=== PATIENT | male | born 1950 | race Caucasian/White ===

== ENCOUNTER 2018-07-04 08:13 | Outpatient (CLI) | payer BC, SELFPAY ==
[2018-07-04 10:20] LABS: Anion Gap 7.8 mmol/L (3-11); BUN 14 mg/dL (7-18); CO2 29.2 mmol/L (21.0-32.0); CREATININE 0.96 mg/dL (0.70-1.30); Calcium 9.5 mg/dL (8.5-10.1); Chloride 103 mmol/L (98-107); Cholesterol 191 mg/dL (50-200); Glucose 85 mg/dL (70-100); HDL Cholesterol 70 mg/dL (40-60); LDL CHOLESTEROL 110 mg/dL (<100); Potassium 4.4 mmol/L (3.5-5.1); Sodium 140 mmol/L (136-145); Triglyceride 50 mg/dL (30-150)
[2018-07-07 10:38] LABS: Testosterone, Total 1380 ng/dL (240-950)
== END 2018-07-04 08:33 ==
PROVIDERS: PCP Family Medicine; Visit Provider Family Medicine
DX: Z00.00 Encounter for general adult medical examination without abnormal findings (principal); Z13.220 Encounter for screening for lipoid disorders; E29.1 Testicular hypofunction; Z13.228 Encounter for screening for other metabolic disorders
CPT/HCPCS: 36415; 80048; 80061; 83721; 84403

== ENCOUNTER 2018-07-15 10:06 | Outpatient (CLI) | payer BC, MEDICARE, SELFPAY ==
[2018-07-18 10:52] LABS: Testosterone, Total 235 ng/dL (240-950)
== END 2018-07-15 10:26 ==
PROVIDERS: PCP Family Medicine; Visit Provider Family Medicine
DX: E29.1 Testicular hypofunction (principal)
CPT/HCPCS: 36415; 84403

== ENCOUNTER 2019-02-15 13:32 | Outpatient (CLI) | payer MEDICARE, BC, SELFPAY ==
[2019-02-15 15:50] LABS: HCT 45.8 % (40.0-50.0); HGB 15.5 g/dL (13.5-17.5); Mean Corp. HGB Concentration 33.8 g/dL (32.0-36.0); Mean Corpuscular Volume 97.7 fL (80-95); Mean Platelet Volume 10.2 fL (8.0-11.0); Platelet Count 271 x1000/uL (130-400); RBC 4.69 m/cumm (4.50-6.00); RBC Distribution Width 13.3 % (11.8-14.1); White Blood Cell Count 5.57 k/cumm (4.4-10.8)
[2019-02-15 16:48] LABS: ALT 21 U/L (16-63); AST 23 U/L (15-37); Albumin 3.6 g/dL (3.4-5.0); Alkaline Phosphatase 87 U/L (46-116); Anion Gap 11.8 mmol/L (3-11); BUN 15 mg/dL (7-18); Bilirubin, Total 0.4 mg/dL (0.2-1.0); CO2 24.2 mmol/L (21.0-32.0); CREATININE 1.01 mg/dL (0.70-1.30); Chloride 104 mmol/L (98-107); Glucose 103 mg/dL (70-100); Potassium 4.5 mmol/L (3.5-5.1); Sodium 140 mmol/L (136-145); Total Protein 6.7 g/dL (6.4-8.2)
== END 2019-02-15 13:52 ==
PROVIDERS: PCP Family Medicine; Visit Provider Family Medicine
DX: R53.83 Other fatigue (principal); F32.9 Major depressive disorder, single episode, unspecified
CPT/HCPCS: 36415; 80053; 85027

== ENCOUNTER 2019-04-15 00:08 | Outpatient (CLI) | payer MEDICARE, BC, SELFPAY ==
--- NOTE | 2019-04-15 09:31 | DI.MRI_ITS ---
EXAM: MR LUMBAR SPINE WO CLINICAL HISTORY: RIGHT LUMBAR RADICULOPATHY NOT RESPONDING TO PT, M54.16., BILAT LEG PAIN, LIFTING INJURY TECHNIQUE: Multiplanar multisequence MRI was performed. COMPARISON: No exams were available for comparison FINDINGS: The t 11-12 disc appears normal. At T12-L 1, there is mild disc bulging. At L1-2, there is severe loss of disc height, greater at the right. There is severe bilateral neural foraminal narrowing. There is no significant central canal stenosis. At L2-3 there is broad-based disc bulging and endplate osteophytes. There is a large disc herniation which is left paracentral which shows extrusion of disc material superior to the L2 vertebral body. This causes moderate to severe central canal stenosis. There are facet degenerative changes and lig amentous hypertrophy. There is severe left and mild right neural foraminal narrowing. At L3-4, there are broad-based disc osteophytes and moderate loss of disc height. There are facet de generative changes and ligamentous hypertrophy combining to cause a moderate degree of central canal stenosis. There is moderate to severe bilateral neural foraminal narrowing. At L4-5, there are broad-based disc osteophytes, marked loss of normal disc height and degenerative s ignal changes in the endplates. There is a superimposed central disc protrusion. There are facet de generative changes and ligamentous hypertrophy combining with the disc bulging and disc protrusion to produce a severe degree of central canal stenosis as well as severe left and moderate right neural f oraminal narrowing. At L5-S1, there is marked loss of disc height, endplate osteophytes projecting circumferentially as w ell as degenerative signal changes in the endplates. There are facet degenerative changes as well as ligamentous hypertrophy combining to produce moderate central canal stenosis as well as severe bilat eral neural foraminal narrowing. There is marrow edema seen in the inferior endplate at L 2 which appears mildly compressed. This is suspicious for an acute or sub acute compression fracture. The conus medullaris appears intact. A c yst is seen at the superior pole of the left kidney. There is an apparent area of scarring in the mi d left kidney. IMPRESSION: 1. Acute or subacute mild compression fracture of the inferior endplate of L 2. 2. Left paracentral disc herniation with superior extrusion of disc material at the L2-3 level. 3. Multilevel degenerative disc changes, facet degenerative changes and ligamentous hypertrophy comb ining to produce central canal stenosis as well as bilateral neural foraminal narrowing.
== END 2019-04-15 00:28 ==
PROVIDERS: PCP Family Medicine; Visit Provider Family Medicine
DX: M54.16 Radiculopathy, lumbar region (principal); M48.56XA Collapsed vertebra, not elsewhere classified, lumbar region, initial encounter for fracture; M51.16 Intervertebral disc disorders with radiculopathy, lumbar region; M51.17 Intervertebral disc disorders with radiculopathy, lumbosacral region; M79.604 Pain in right leg; M79.605 Pain in left leg
CPT/HCPCS: 72148

== ENCOUNTER 2019-05-09 15:57 | Outpatient (CLI) | payer MEDICARE, BC, SELFPAY ==
--- NOTE | 2019-05-09 12:00 | DI.RAD_ITS ---
EXAM: XR LUMBAR SPINE COMPLETE CLINICAL HISTORY: Compression fracture L2 S32.020A COMPARISON: MR LUMBAR SPINE WO from 04/15/2019 FINDINGS: There is narrowing of the intervertebral disc spaces at the L1-2, L4-5 and L5-S1 levels with prominen t sclerotic endplate changes and hypertrophic changes at these levels. Hypertrophic changes also pre sent to a lesser degree at the remaining lumbar levels. There are moderate changes of facet hypertro phy. No definite spondylolysis or spondylolisthesis. No acute compression fracture. Inferior endpl ate compression noted at L2, no change from prior MR examination of April 15. IMPRESSION: Multilevel degenerative changes and disc degeneration as described above. No gross interval change in contour of L2 vertebral body since 04/15/2019.
== END 2019-05-09 16:17 ==
PROVIDERS: PCP Family Medicine; Visit Provider Family Medicine
DX: M51.37 Other intervertebral disc degeneration, lumbosacral region (principal); M47.817 Spondylosis without myelopathy or radiculopathy, lumbosacral region; S32.020D Wedge compression fracture of second lumbar vertebra, subsequent encounter for fracture with routine healing
CPT/HCPCS: 72110

== ENCOUNTER 2019-08-23 01:47 | Outpatient (CLI) | payer MEDICARE, BC, SELFPAY ==
--- NOTE | 2019-08-23 06:30 | DI.MRI_ITS ---
EXAM: MR LUMBAR SPINE WO CLINICAL HISTORY: Worsening pain from lumbar radiculopathy,SPINAL STENOSIS,M54.16,M48.061.BILAT LEG PAIN, SACRAL PAIN TECHNIQUE: Multiplanar multisequence MRI was performed. COMPARISON: MR LUMBAR SPINE WO from 04/15/2019 FINDINGS: The conus medullaris has a normal location. At L5-S1, there is disc desiccation. There is a diffuse disc bulge present. There are hypertrophic changes of the facets and ligamentum flavum. No significant central spinal canal stenosis is present . Moderately severe right and moderate left neural foraminal stenosis is present. At L4-5, there is a large central disc herniation which appears unchanged. There are hypertrophic ch anges of the facets and ligamentum flavum. These all contribute to cause moderately severe central s crystal canal stenosis. No significant right neural foraminal stenosis is present. There is mild-to-m oderate left neural foraminal stenosis. At L3-L4, there is disc desiccation and there is a mild diffuse disc bulge. No focal disc herniation is seen. There are hypertrophic changes of the ligamentum flavum asymmetrically on the right. No si gnificant central spinal canal stenosis is seen. There is mild bilateral neural foraminal stenosis, right greater than left. At L2-L3, there is again seen a large central disc herniation with extrusion posterior to the L2 vert ebral body. There are hypertrophic changes of the facets. These all contribute to cause moderate ce ntral spinal canal stenosis. No significant right neural foraminal stenosis is seen. Moderately sev ere left neural foraminal stenosis is present. Endplate degenerative signal changes are present. At L1-L2, there is degenerative disc disease. No focal disc herniation or central spinal canal steno sis is present. Mild narrowing of the neural foramen is present. There has been no change in appearance of the L2 compression deformity. Linear low signal seen in th e L1 and L4 vertebral body appears stable. No new compression fracture deformities are appreciated. IMPRESSION: Overall stable appearance of the MRI of the lumbar spine. Multilevel spinal canal and neural foramin al stenosis is seen. Multilevel disc herniations are present. Please see the above discussion for c omplete details. DATA REPOSITORY:
== END 2019-08-23 02:07 ==
PROVIDERS: PCP Family Medicine; Visit Provider Family Medicine
DX: M48.061 Spinal stenosis, lumbar region without neurogenic claudication (principal); M54.16 Radiculopathy, lumbar region; M79.604 Pain in right leg; M79.605 Pain in left leg; M51.17 Intervertebral disc disorders with radiculopathy, lumbosacral region
CPT/HCPCS: 72148

== ENCOUNTER 2019-09-13 18:59 | Outpatient (REF) | payer MEDICARE, BC, SELFPAY ==
[2019-09-13 19:22] LABS: Abs Immature Grans 0.01 k/cumm (0.0-0.09); Absolute Basophil Count 0.05 k/cumm (0.0-0.2); Absolute Lymphocyte Count 2.25 k/cumm (1.2-3.4); Absolute Monocyte Count 0.77 k/cumm (0.11-0.7); Absolute Neutrophil Count 2.68 k/cumm (1.2-6.7); Basophils % 0.8; Eosinophils % 6.5; HCT 48.2 % (40.0-50.0); HGB 16.3 g/dL (13.5-17.5); Immature Grans % 0.2 %; Lymphocytes % 36.5; Mean Corp. HGB Concentration 33.8 g/dL (32.0-36.0); Mean Corpuscular Hemoglobin 34.2 pg (27.0-33.0); Mean Platelet Volume 10.9 fL (8.0-11.0); Monocytes % 12.5; Neutrophils % 43.5; Platelet Count 259 x1000/uL (130-400); RBC 4.77 m/cumm (4.50-6.00); RBC Distribution Width 13.2 % (11.8-14.1); White Blood Cell Count 6.16 k/cumm (4.4-10.8)
[2019-09-13 19:31] LABS: ALT 25 U/L (16-63); AST 23 U/L (15-37); Albumin 4.1 g/dL (3.4-5.0); Alkaline Phosphatase 66 U/L (46-116); Anion Gap 6.9 mmol/L (3-11); BUN 16 mg/dL (7-18); Bilirubin, Total 0.6 mg/dL (0.2-1.0); CO2 31.1 mmol/L (21.0-32.0); Calcium 9.8 mg/dL (8.5-10.1); Chloride 101 mmol/L (98-107); Glucose 100 mg/dL (74-106); Potassium 4.2 mmol/L (3.5-5.1); Sodium 139 mmol/L (136-145); Total Protein 7.1 g/dL (6.4-8.2)
== END 2019-09-13 19:19 ==
LOC: LBN 18:59
PROVIDERS: PCP Family Medicine; Visit Provider Nurse Practitioner Family
DX: M54.16 Radiculopathy, lumbar region (principal); M48.061 Spinal stenosis, lumbar region without neurogenic claudication; Z01.818 Encounter for other preprocedural examination; Z01.812 Encounter for preprocedural laboratory examination
CPT/HCPCS: 80053; 85025

== ENCOUNTER 2019-11-05 07:59 | Outpatient (CLI) | payer MEDICARE, BC, SELFPAY ==
[2019-11-08 02:35] LABS: SARS-CoV-2 RNA Undetected (Undetected); SARS-CoV-2 Specimen Source Nasopharynx
== END 2019-11-05 08:19 ==
PROVIDERS: PCP Family Medicine; Visit Provider Family Medicine
DX: Z03.818 Encounter for observation for suspected exposure to other biological agents ruled out (principal)
CPT/HCPCS: U0003

== ENCOUNTER 2020-03-16 08:10 | Outpatient (CLI) | payer MEDICARE, BC, SELFPAY ==
[2020-03-19 02:20] LABS: Patient Race White; SARS-CoV-2 RNA Undetected (Undetected); SARS-CoV-2 Specimen Source Nasal
== END 2020-03-16 08:30 ==
PROVIDERS: PCP Nurse Practitioner Family; Visit Provider Nurse Practitioner Family
DX: Z11.59 Encounter for screening for other viral diseases (principal)
CPT/HCPCS: U0003

== ENCOUNTER 2020-03-23 02:46 | Outpatient (CLI) | payer MEDICARE, BC, SELFPAY ==
[2020-03-27 15:20] LABS: Testosterone, Free 11.1 ng/dL (3.47-13.0); Testosterone, Total 309 ng/dL (240-950)
== END 2020-03-23 03:06 ==
PROVIDERS: PCP Nurse Practitioner Family; Visit Provider Nurse Practitioner Family
DX: E29.1 Testicular hypofunction (principal)
CPT/HCPCS: 36415; 84402; 84403

== ENCOUNTER 2020-07-14 03:32 | Outpatient (CLI) | payer MEDICARE, BC, SELFPAY ==
[2020-07-14 15:43] LABS: HCT 45.4 % (40.0-50.0); HGB 15.4 g/dL (13.5-17.5); MCHC 33.9 % (32.0-36.0); MCV 100.2 fL (80-95); MPV 9.3 fL (8.0-11.0); Platelet Count 346 10^3/uL (130-400); RBC 4.53 10^6/uL (4.36-5.78); RDW 12.5 % (11.8-14.1); RDW-SD 46.6 fL; WBC 5.72 10^3/uL (4.4-10.8)
[2020-07-14 16:55] LABS: Hemoglobin A1C 5.6 % (<5.7)
[2020-07-14 17:20] LABS: Calculated LDL 83 mg/dL (<100); Cholesterol 196 mg/dL (<200); Ferritin 73 ng/mL (26-388); HDL Cholesterol 49 mg/dL (40-60); TSH 6.86 uIU/mL (0.36-3.74); Triglyceride 320 mg/dL (<150); Vitamin B12 494 pg/mL (193-986)
[2020-07-14 17:46] LABS: Folate > 20.0 ng/mL (8.6-20.0)
[2020-07-14 18:01] LABS: FREE T4 0.72 ng/dL (0.76-1.46)
[2020-07-16 04:49] LABS: Vitamin D 25 Total 37.3 ng/ml (30-100)
[2020-07-17 18:15] LABS: Thyroglobulin Antibody <15 U/mL (<=60); Thyroperoxidase Antibody <28 U/mL (<=60)
== END 2020-07-14 03:33 | disposition home or self-care (01) ==
LOC: LBO 03:32
PROVIDERS: PCP Nurse Practitioner Family; Visit Provider Nurse Practitioner Family
DX: R53.83 Other fatigue (principal); E78.5 Hyperlipidemia, unspecified; R73.01 Impaired fasting glucose; D75.89 Other specified diseases of blood and blood-forming organs; M85.88 Other specified disorders of bone density and structure, other site
CPT/HCPCS: 36415; 80061; 82306; 85027; 86376; 82607; 82728; 82746; 83036; 84439; 84443

== ENCOUNTER 2020-08-11 02:11 | Outpatient (CLI) | payer MEDICARE, BC, SELFPAY ==
--- NOTE | 2020-08-11 09:00 | DI.DEXA_ITS ---
EXAM: XR DEXA BONE DENSITY W/WO GABBY CLINICAL HISTORY: Recurrent fractures, assess for osteoporosis,OSTEOPENIA RT HIP, M85.851 TECHNIQUE: Ditto C densitometer. Evaluation of the lumbar spine, right forearm and left h ip. COMPARISON: CR CHEST 2 VIEWS PA,LAT from 04/12/2010 CR CHEST 2 VIEWS PA,LAT from 04/12/2010 CR XR LUMBAR SPINE COMPLETE from 05/09/2019 MR MR LUMBAR SPINE WO from 08/23/2019 FINDINGS: The lateral diesel inspector view of the thoracic and lumbar spine shows no visible compression fractures. Dege nerative disc changes are noted in the lumbar region. The bone mineral density measurements of the lumbar spine correspond to total T-score of 0.6, in the normal range. The bone mineral density measurements of the lumbar spine may be falsely elevated due to sclerotic degenerative disc changes which are visible at L2-3 and L3-4.. The least dense vertebra l body is L1 with a T-score of -3.8, in the osteoporotic range. Bone mineral density measurements of the left hip correspond to a total T-score of -2.0 and a femoral neck T-score of -2.4, in the osteopenic range. The right forearm bone mineral density measurements correspond to a T-score of the distal 3rd of -2.6 , in the osteoporotic range. The IMPRESSION: Overall normal bone mineral density of the lumbar spine may be falsely elevated DJD degenerative disc changes. The L1 vertebral body shows osteoporosis. Osteoporosis of is also demonstrated in the rig ht forearm. Osteopenia is present in the left hip.
== END 2020-08-11 02:31 ==
PROVIDERS: PCP Nurse Practitioner Family; Visit Provider Nurse Practitioner Family
DX: M81.0 Age-related osteoporosis without current pathological fracture (principal); M85.88 Other specified disorders of bone density and structure, other site; M85.851 Other specified disorders of bone density and structure, right thigh
CPT/HCPCS: 77080

== ENCOUNTER 2020-08-19 02:42 | Outpatient (RCR) | payer MEDICARE, BC, SELFPAY ==
[2020-08-19] MEDS: Normal Saline Flush 10 ML SYR IVP (13:07)
== END 2020-09-04 23:59 | disposition home or self-care (01) ==
LOC: INF 02:42
PROVIDERS: PCP Nurse Practitioner Family; Visit Provider Nurse Practitioner Family
DX: M81.8 Other osteoporosis without current pathological fracture (principal)
CPT/HCPCS: 96365; J3489

== ENCOUNTER 2020-08-21 02:12 | Outpatient (CLI) | payer MEDICARE, BC, SELFPAY ==
[2020-08-21 09:22] LABS: Calculated LDL 97 mg/dL (<100); Cholesterol 170 mg/dL (<200); HDL Cholesterol 54 mg/dL (40-60); Triglyceride 99 mg/dL (<150)
[2020-08-21 09:44] LABS: FREE T4 0.68 ng/dL (0.76-1.46); TSH 2.98 uIU/mL (0.36-3.74)
[2020-08-25 15:15] LABS: Testosterone, Free 43.5 ng/dL (3.28-12.2); Testosterone, Total 1060 ng/dL (240-950)
== END 2020-08-21 02:13 | disposition home or self-care (01) ==
LOC: LBO 02:12
PROVIDERS: PCP Nurse Practitioner Family; Visit Provider Nurse Practitioner Family
DX: E78.1 Pure hyperglyceridemia (principal); E29.1 Testicular hypofunction; R79.89 Other specified abnormal findings of blood chemistry
CPT/HCPCS: 36415; 80061; 84402; 84403; 84439; 84443

== ENCOUNTER 2020-08-27 16:25 | Outpatient (CLI) | payer MEDICARE, BC, SELFPAY ==
--- NOTE | 2020-08-27 08:00 | DI.US_ITS ---
EXAM: US THYROID CLINICAL HISTORY: assess for thyroid atrophy, nodules,ELEVATED TSH,R79.89. TECHNIQUE: Ultrasound thyroid performed using standard protocol. COMPARISON: No exams were available for comparison FINDINGS: RIGHT THYROID LOBE: Measures 1.0 cm AP x 1.1 cm wide x 3.2 cm craniocaudal There are no nodules in the right lobe. Slightly prominent vein is noted medial to the jugular vein. TiRads: 0 ISTHMUS: Normal thickness. There are no nodules in the isthmus. LEFT THYROID LOBE: Measures 1.1 cm AP x 1.0 wide x 3.1 cm craniocaudal There are no nodules evident in the left lobe TiRads: 0 LYMPH NODES: Small benign-appearing lymph nodes seen bilaterally.. No significant adenopathy. IMPRESSION: 1. No significant findings on this ultrasound examination of the thyroid gland. There are no nodules in either thyroid lobe. Both lobes exhibit normal size, as does the isthmus. 2. There is no significant lymphadenopathy. DATA REPOSITORY:
--- OUTSIDE RECORDS SUMMARY | 2020-08-28 16:29 | XMS_ITS | Encounter Summary ---
:1950 Author Care Team Providers Name Role Phone Kylie Hughes MARKETING RESEARCH ANALYST Primary Care Provider [phone] Reason for Visit post op s/p ORIF w/cannulated screws R hip subca pital fx, DOS 07/01/20 Assessment and Plan Assessment Note Patient is doing well. I advised hi m not to be too active given that healing is still going to take several months. I should see him in a month with some repeat films of the right hip. Total time 15 minutes 1. Fracture of proximal end of f emur ? XR, hip + pelvis, unilater al, 1 view Discussion Note: None recorded.Patient educational handouts: No information available. Plan of Care Reminders Provider Appointments Follow up Amita Herring, 15 09/23/2020 10:15AM Lab None ? ? recorded. Referral None ? ? recorded. Procedures None ? ? recorded. Surgeries None ? ? recorded. Imaging XR, Hip + [place] Pelvis, Unilateral, 1 08/26/2020 Hospital R adiology View (Internal) Medications Name Start Date ? ? Acetaminophen Extra Strength 500 mg tablet 07/02/2020 Take 2 tablets every 6 hours by oral route as needed. albuterol sulfate HFA 90 mcg/actuation aerosol inhaler 07/02/2020 Inhale 2 puffs every 4 hours by inhalation route. Cymbalta 60 mg capsule,delayed release 07/02/2020 Take 2 capsules every day by oral route. enoxaparin 40 mg/0.4 mL subcutaneous syringe Inject 40 mg every 24 hours by subcutaneous route for 21 days. testosterone cypionate 200 mg/mL intramuscular oil Inject 200 mg every 2 weeks by intramuscular route. Notes: Med Rec Updated 07/01/2020 -laf zinc, magnesium, NAC- all OTC. Medications Administered None recorded. Vitals Height Weight BMI Blood Pressure 6 ft Results Lab Results None recorded. Allergies Code Code System Name Reaction Severity Onset NKDA ? ? ? Problems Name Status Onset Date Source ? Depressive Disorder Active ? ? Obstructive Sleep Apnea Syndrome Active ? History Asthma Active ? ? Sleep Disorder Active ? History Snoring Active ? History Respiratory Crackles Active ? History Procedures Date Name Performed by ? 07/01/2020 Closed Reduction of Fracture Information not available Notes: closed reduction internal fixa tion of R hip subcapital fx ? Hernia Repair Information not avai lable ? Laminotomy Single Lumbar Information not available Notes: L 5 decades ago ? Knee Surgery Information not avai lable 07/29/2020 XR, Hip + Pelvis, Unilateral, 1 [facility] Radiology (Internal) [place] [address] [place] [address] (Work Place) 08/26/2020 XR, Hip + Pelvis, Unilateral, 1 [facility] Radiology (Internal) [place] [address] [place] [address] (Work Place) Vaccine List Vaccine Type COVID-19, mRNA, LNP-S, PF, 100 mcg/0.5 m L dose 07/08/2020?0.5 mL 08/05/2020?100 mcg Social History Tobacco Smoking Status Never Smoker Illicit drug use? N Most Recent Tobacco Use Screening 07/21/2018 Advance directive N Do you feel safe at home? Y Use IV drugs? N Any marijuana use? Y Functional Status Unknown. Past Encounters 08/26/2020 Fracture of Proximal End of Femur Miguel Herring MD: [address] [facility], [address], [place] [address], Ph. 07/29/2020 Postoperative Visit Miguel Herring MD: [address] [facility] [employer] [place], [address], [place] [address], Ph. History of Present Illness Note: <p>Follow-up for patient who had reduction fixation right hip subcapital fracture July 01, 2020 with cannulated screws. Patient tells me that a few days ago he started walking without the cane. Patient tells me that maybe a month or so ago he had tried to get back onto his seeing eye dog trainer bike but he was uncomfortable and so he stopped doing this. He also noticed that as he tried to sit Indianstyle he had discomfort and I advised him not to do this as it placed the hip in maximal internal rotation which was not advisable. Otherwise he has been doing reasonably well.
</p> Review of Systems ? Ortho ROS Reported By: Patient Ortho ROS: Do you have any of the follo wing symptoms? All systems reviewed and normal Physical Exam ? Notes: <p>Patient is seen and he is in no acute distress. Walks with a slight limp. In a supine position I can f essence the hip up to 90 degrees. I can abduct the hip about 40 degrees. I can gent ly internally and externally rotate him.

X-rays reviewed AP pelvis right hip as a frog-leg lateral and we can see the impacted subcapi munira fracture with some neck shortening. There is been backout of about 5 mm o f the screws only. Which is essentially unchanged from his previous films of a month ago. The head is well aligned on the neck both on the AP and the later al and the screws are in good position.
</p>
--- OUTSIDE RECORDS SUMMARY | 2020-08-28 16:29 | XMS_ITS | Encounter Summary ---
:1950 Author Care Team Providers Name Role Phone Kylie Saul DAVALOS Primary Care Provider [phone] Reason for Visit None recorded. Assessment and Plan Assessment Note Patient be seen in 2 weeks with rep eat films of his right hip. He had been using a quad cane on the left side and he told me that he had actually left the hospital with a walker so I indicated that for the first 6 weeks it was preferable for him to continue with a walker and then to switch to the cane at about 6 weeks. Note that patient had been trying to single leg support on that side and I exp lained that we did not want the fracture to displace and therefore to avoid this and to stay with a walker for now. He agreed to do this. Total time 10 minutes Discussion Note: None recorded.Patient educational handouts: No information available. Plan of Care Reminders Provider Appointments Follow up 09/23/2020 Amita ane 15 10:15AM MD [facility] Lab None ? ? recorded. Referral None ? ? recorded. Procedures None ? ? recorded. Surgeries None ? ? recorded. Imaging None ? ? recorded. Medications Name Start Date ? ? Acetaminophen [...] all OTC. Medications Administered None recorded. Vitals None recorded. Results Lab Results None recorded. Allergies Code [...] ? Knee Surgery Information not avai lable 07/09/2020 XR, Hip + Pelvis, Unilateral, 1 [facility] Radiology (Internal) [address] [place] [address] (Work Place) Vaccine List Vaccine Type COVID-19, mRNA, LNP-S, PF, 100 mcg/0.5 m L dose 07/08/2020?0.5 mL 08/05/2020?100 mcg Social History Tobacco Smoking Status Never Smoker Illicit drug use? N Most Recent Tobacco Use Screening 07/21/2018 Advance directive N Do you feel safe at home? Y Use IV drugs? N Any marijuana use? Y Functional Status Unknown. Past Encounters 07/14/2020 Miguel Herring MD: [address] [place] [address], [address], [place] [address], Ph. 07/09/2020 Closed Fracture of Hip Miguel Herring MD: [address] [facility], [address], [place] [address], Ph. History of Present Illness Note: <p>Follow-up for patient who had open reduction internal fixation with cannulated screws for subcapital fracture right hip on July 01, 2020. Patient came in today as he felt that the incision was getting red.
</p> Review of Systems None recorded. Physical Exam ? Notes: <p>Patient in no acute distr ess. We examined his right hip incision and he was getting some reaction to the clips and since he was at 13 days post surgery we decided to remove all of the se. Steri-Strips had already been put in place as half the clips had been hemal bee at his last visit. Thigh showed no swelling.
</p>
--- OUTSIDE RECORDS SUMMARY | 2020-08-28 16:29 | XMS_ITS | Encounter Summary ---
:1950 Author Care Team Providers Name Role Phone Kylie Hughes ANOOP Primary Care Provider [phone] Reason for Visit post op s/p ORIF w/cannulated screws R hip subca pital fx, DOS 07/01/20 Assessment and Plan Assessment Note Patient is doing well. At this poin t we will see him in a month with some repeat films AP pelvis and lateral of the right hip. He tells me that he has a bike on a monkey trainer which I think he can use i n low gear. He has an elliptical machine but I would prefer that he wait prior to doing that exercise. Total time 18 minutes 1. Postoperative visit ? XR, hip + pelvis, unilater al, 1 view - orif of right hip 07/01/20 Discussion Note: None recorded.Patient educational handouts: No information available. Plan of Care Reminders Provider Appointments Follow up Amita Herring, 15 09/23/2020 10:15AM Lab None ? ? recorded. Referral None ? ? recorded. Procedures None ? ? recorded. Surgeries None ? ? recorded. Imaging XR, Hip + [place] Pelvis, Unilateral, 1 07/29/2020 Hospital R adiology View (Internal) Medications Name [...] 07/09/2020 XR, Hip + Pelvis, Unilateral, 1 [facility] Radiology (Internal) View [address] [place] [address] (Work Place) 07/29/2020 XR, Hip + Pelvis, Unilateral, 1 [facility] Radiology (Internal) View [address] [place] [address] (Work Place) Vaccine List Vaccine Type COVID-19, mRNA, LNP-S, PF, 100 mcg/0.5 m L dose 07/08/2020?0.5 mL 08/05/2020?100 mcg Social History Tobacco Smoking Status Never Smoker Illicit drug use? N Most Recent Tobacco Use Screening 07/21/2018 Advance directive N Do you feel safe at home? Y Use IV drugs? N Any marijuana use? Y Functional Status Unknown. Past Encounters 07/29/2020 Postoperative Visit Miguel Herring MD: [address] [facility], [address], [place] [address], Ph. 07/14/2020 Miguel Herring MD: [address] [place] [address], [address], [place] [address], Ph. 07/09/2020 Closed Fracture of Hip Miguel Herring MD: [address] [place] [address], [address], [place] [address], Ph. History of Present Illness Note: <p>Follow-up for patient who had reduction fixation right hip subcapital fracture on July 01, 2020. Patient is ambulating with a quad cane on the left side. He is home but is not doing any formal therapy. He does not complain of any significant pain.
</p> Review of Systems None recorded. Physical Exam ? Notes: <p>Patient seen and he is in no acute distress

Examining his right hip the incision is clean and dr burnett showing no evidence of infection.

X-rays were done including an AP pe lvis and a frog-leg lateral and the screws were in good position with under 5 m m of impaction.
</p>
--- OUTSIDE RECORDS SUMMARY | 2020-08-28 16:29 | XMS_ITS ---
:1950 Author Care Team Providers Name Role Phone DOT CHU ANOOP Primary Care Provider [phone] Allergies Code Code System Name Reaction Severity Status Onset NKDA ? Medications Name Status Start Date Stop Date ? ? Acetaminophen Extra Strength 500 mg tablet Active 07/02 Not available Take 2 tablets every 6 hours by oral route as needed. albuterol sulfate HFA 90 mcg/actuation aerosol inhaler Active 07/02/2020 Not available Inhale 2 puffs every 4 hours by inhalation route. Cymbalta 60 mg capsule,delayed release Active Not available Take 2 capsules every day by oral route. doxycycline hyclate 100 mg tablet Completed ? 07/02/2020 Take 1 tablet twice a day by oral route. enoxaparin 40 mg/0.4 mL subcutaneous syringe Active Not available Inject 40 mg every 24 hours by subcutaneous route for 21 days. prednisone 10 mg tablet Completed ? 07/02/19 21 Take 1 tablet every day by oral route. testosterone cypionate 200 mg/mL intramuscular oil Active 07/02/2020 Not available Inject 200 mg every 2 weeks by intramuscular route. Notes: Med Rec Updated 07/01/2020 -laf zinc, magnesium, NAC- all OTC. Problems Name Status Onset Date Source ? [...] Hospital Radiology (Internal) [place] [address] [place] [address] (Work Place) 07/29/2020 XR, Hip + Pelvis, Unilateral, 1 [facility] Radiology (Internal) View [address] [place] [address] (Work Place) 08/26/2020 XR, Hip + Pelvis, Unilateral, 1 [facility] Radiology (Internal) View [address] [place] [address] (Work Place) Results Lab Results Date Name Specimen Result Interpretation Description Value Range Status Address ? 07/02/2020 CBC W/ BLD ? Wbc 8.9 10*3/uL 5.0-10.0 Final [place] 10*3/uL [facility] (Internal) : [address] t ? ? BLD ? Rbc 4.60 10*6/uL 4.60-6.00 Final N orth 10*6/uL [facility] [address] t ? ? BLD ? Hgb 15.1 g/dL 14.0-18.0 Final Nort h g/dL [facility] (Internal) : [address] t ? ? BLD ? Hct 46.3 % 41.0-51.0 Final [facility] (Internal) : [address] t ? ? BLD High Mcv 100.7 fL 80.0-96.0 Final [facility] (Internal) : [address] t ? ? BLD High Mch 32.8 pg 26.0-32.0 Final [facility] (Internal) : [address] t ? ? BLD ? Mchc 32.6 g/dL 31.0-35.0 Final Nort h g/dL [facility] (Internal) : [address] t ? ? BLD ? Rdw 12.8 % 11.5-14.5 Final [facility] (Internal) : [address] t ? ? BLD ? Plt 207 10*3/uL 130-450 Final Nort h 10*3/uL [facility] (Internal) : [address] t ? ? BLD ? Anc 6.87 10*3/uL ? Final Nort h [facility] (Internal) : [address] t ? ? BLD High Nlr 7.08 0.00-3.20 Final [facility] (Internal) : [address] t ? ? BLD High Neutro 76.8 % 40.0-75.0 Final [facility] (Internal) : [address] t ? ? BLD Low Lymph 10.9 % 20.0-50.0 Final [facility] (Internal) : [address] t ? ? BLD High [place] 11.1 % 2.0-10.0 Final [facility] (Internal) : [address] t ? ? BLD Low Eos 0.7 % 1.0-6.0 % Final [facility] (Internal) : [address] t ? ? BLD ? Baso 0.2 % 0.0-1.0 % Final [facility] (Internal) : [address] t ? ? BLD ? Ig 0.3 % 0.0-0.9 % Final [facility] (Internal) : [address] t 07/02/2020 BMP, S High g/r 116 mg/dL 74-106 Final Nor th Serum or mg/dL [facility] (Internal) : [address] t ? ? S ? Bun 19 mg/dL 9-20 Final North mg/dL [facility] (Internal) : [address] t ? ? S ? Crea 0.90 mg/dL 0.66-1.25 Final Nor th mg/dL [facility] (Internal) : [address] t ? ? S ? Ca 9.2 mg/dL 8.4-10.2 Final North mg/dL [facility] (Internal) : [address] t ? ? S ? Na 138 mmol/L 137-145 Final [place] mmol/L [facility] (Internal) : [address] t ? ? S ? K 4.3 mmol/L 3.5-5.1 Final [place] mmol/L [facility] (Internal) : [address] t ? ? S ? Cl 105 mmol/L 98-107 Final [place] mmol/L [facility] (Internal) : [address] t ? ? S ? Tco2 24.0 mmol/L 22.0-30.0 Final No rth mmol/L [facility] (Internal) : [address] 07/02/2020 RBC BLD ? Macro small ? Final [facility] L ab Blood (Internal) : [address] 07/01/2020 CBC W/ BLD ? Wbc 6.6 10*3/uL 5.0-10.0 Final [place] 10*3/uL [facility] (Internal) : [address] t ? ? BLD Low Rbc 4.58 10*6/uL 4.60-6.00 Final N orth 10*6/uL [facility] (Internal) : [address] t ? ? BLD ? Hgb 15.1 g/dL 14.0-18.0 Final Nort h g/dL [facility] (Internal) : [address] t ? ? BLD ? Hct 46.0 % 41.0-51.0 Final [facility] L [facility] (Internal) : [address] t ? ? BLD High Mcv 100.4 fL 80.0-96.0 Final [facility] (Internal) : [address] t ? ? BLD High Mch 33.0 pg 26.0-32.0 Final [facility] (Internal) : [address] t ? ? BLD ? Mchc 32.8 g/dL 31.0-35.0 Final Nort h g/dL [facility] (Internal) : [address] t ? ? BLD ? Rdw 12.9 % 11.5-14.5 Final [facility] (Internal) : [address] t ? ? BLD ? Plt 213 10*3/uL 130-450 Final Nort h 10*3/uL [facility] (Internal) : [address] t ? ? BLD ? Anc 4.38 10*3/uL ? Final Nort h [facility] (Internal) : [address] t ? ? BLD High Nlr 3.59 0.00-3.20 Final [facility] (Internal) : [address] t ? ? BLD ? Neutro 66.5 % 40.0-75.0 Final [facility] (Internal) : [address] t ? ? BLD Low Lymph 18.5 % 20.0-50.0 Final [facility] (Internal) : [address] t ? ? BLD High [place] 11.1 % 2.0-10.0 Final [facility] (Internal) : [address] t ? ? BLD ? Eos 2.6 % 1.0-6.0 % Final [facility] (Internal) : [address] t ? ? BLD ? Baso 0.8 % 0.0-1.0 % Final [facility] (Internal) : [address] t ? ? BLD ? Ig 0.5 % 0.0-0.9 % Final [facility] (Internal) : [address] t 07/01/2020 BMP, S ? g/r 97 mg/dL 74-106 Final Nort h Serum or mg/dL [facility] (Internal) : [address] t ? ? S ? Bun 16 mg/dL 9-20 Final North mg/dL [facility] (Internal) : [address] t ? ? S ? Crea 0.90 mg/dL 0.66-1.25 Final Nor th mg/dL [facility] (Internal) : [address] t ? ? S ? Ca 8.7 mg/dL 8.4-10.2 Final [place] mg/dL [facility] (Internal) : [address] t ? ? S ? Na 138 mmol/L 137-145 Final [place] mmol/L [facility] (Internal) : [address] ? ? S ? K 3.7 mmol/L 3.5-5.1 Final [place] mmol/L [facility] (Internal) : [address] t ? ? S ? Cl 106 mmol/L 98-107 Final [place] mmol/L [facility] (Internal) : [address] t ? ? S ? Tco2 22.0 mmol/L 22.0-30.0 Final No rth mmol/L [facility] (Internal) : [address] 07/01/2020 RBC BLD ? Macro occasional ? Final No rth [facility] Blood (Internal) : [address] 06/30/2020 EKG Done ? No ? ? ? Nort h by ED observation Count ry recorded. Hospita l Lab (Internal) : [address] Past Encounters 08/26/2020 Fracture of Proximal End of Femur Miguel Herring MD: [address] [place] [address], [facility] [address] [address], Ph. 07/29/2020 Postoperative Visit Miguel Herrign MD: [address] [place] [address], [facility] [address] [address], Ph. 07/14/2020 Miguel Herring MD: [address] [place] [address], [facility] [address] [address], Ph. 07/09/2020 Closed Fracture of Hip Miguel Herring MD: [address] [place] [address], [facility] [address] [address], Ph. Social History Tobacco Smoking Status Never Smoker Vaccine List Vaccine Type COVID-19, mRNA, LNP-S, PF, 100 mcg/0.5 m L dose 07/08/2020?0.5 mL 08/05/2020?100 mcg Plan of Care Reminders Provider Appointments None ? ? recorded. Lab None ? ? recorded. Referral None ? ? recorded. Procedures None ? ? recorded. Surgeries None ? ? recorded. Imaging None ? ? recorded. Vitals 08/26/2020 10:30AM Follow Up 15 Height Weight BMI Blood Pressure 182.88 cm 07/09/2020 01:00PM Post Op 15 Height Weight BMI 182.88 cm 77.11 kg 23.1 kg/m2 12/09/2014 Weight Blood Pressure 79.44 kg 100/58 mm[Hg] 12/09/2014 Height 180.34 cm 10/21/2014 Weight Blood Pressure 79.04 kg 112/70 mm[Hg] 10/21/2014 Height 180.34 cm
--- OUTSIDE RECORDS SUMMARY | 2020-08-28 16:29 | XMS_ITS | Encounter Summary ---
:1950 Author Care Team Providers Name Role Phone Kylie Hughes [employer] PROPERTY MANAGER Primary Care Provider [phone] Reason for Visit post op s/p ORIF w/cannulated screws R hip subca pital fx, DOS 07/01/20 Assessment and Plan Assessment Note And will be seen next Monday for removal of the remainder of the clips. He is bearing weight with a cane on the left side. Total time 10 minutes 1. Closed fracture of hip ? XR, hip + pelvis, unilater al, 1 view Discussion Note: None recorded.Patient educational handouts: No information available. Plan of Care Reminders Provider Appointments Follow up Amita Herring, 15 09/23/2020 10:15AM Lab None ? ? recorded. Referral None ? ? recorded. Procedures None ? ? recorded. Surgeries None ? ? recorded. Imaging XR, Hip + [place] Pelvis, Unilateral, 1 07/09/2020 Hospital R adiology View (Internal) Medications Name [...] Administered None recorded. Vitals Height Weight BMI 6 ft 169 lbs 16 oz 23.1 kg/m2 Results Lab Results None recorded. Allergies Code [...] 07/09/2020 XR, Hip + Pelvis, Unilateral, 1 [facility] Radiology (Internal) View [address] [place] [address] (Work Place) Vaccine List Vaccine Type COVID-19, mRNA, LNP-S, PF, 100 mcg/0.5 m L dose 07/08/2020?0.5 mL 08/05/2020?100 mcg Social History Tobacco Smoking Status Never Smoker Illicit drug use? N Most Recent Tobacco Use Screening 07/21/2018 Advance directive N Do you feel safe at home? Y Use IV drugs? N Any marijuana use? Y Functional Status Unknown. Past Encounters 07/09/2020 Closed Fracture of Hip Miguel Herring MD: [address] [place] [address], [address], [place] [address], Ph. History of Present Illness Note: <p>Follow-up for patient who had open reduction with internal fixation with cannulated screws for subcapital fracture right hip on 07/01/2020. Patient has been home and is ambulating with a cane.
</p> Review of Systems None recorded. Physical Exam ? Notes: <p>Patient seen and he is in no acute distress.

We examined the right hip and the dressing was rem ana. He had some slight reaction to the clips therefore half of these were removed. We applied some benzoin and Steri-Strips and then we applied a strip dressing. No swelling of thigh.
</p>
== END 2020-08-27 16:45 ==
PROVIDERS: PCP Nurse Practitioner Family; Visit Provider Nurse Practitioner Family
DX: R94.6 Abnormal results of thyroid function studies (principal); R79.89 Other specified abnormal findings of blood chemistry
CPT/HCPCS: 76536

== ENCOUNTER 2020-09-18 03:45 | Outpatient (CLI) | payer MEDICARE, BC, SELFPAY ==
[2020-09-18 15:17] LABS: FREE T4 0.61 ng/dL (0.76-1.46); TSH 3.75 uIU/mL (0.36-3.74)
[2020-09-21 12:22] LABS: Testosterone, Free 17.4 ng/dL (3.28-12.2); Testosterone, Total 459 ng/dL (240-950)
== END 2020-09-18 03:46 | disposition home or self-care (01) ==
LOC: LBO 03:46
PROVIDERS: PCP Nurse Practitioner Family; Visit Provider Nurse Practitioner Family
DX: E29.1 Testicular hypofunction (principal); R94.6 Abnormal results of thyroid function studies
CPT/HCPCS: 36415; 84402; 84403; 84439; 84443

== ENCOUNTER 2020-09-25 03:11 | Outpatient (CLI) | payer MEDICARE, BC, SELFPAY ==
[2020-10-01 16:20] LABS: Testosterone, Free 54.6 ng/dL (3.28-12.2); Testosterone, Total 1240 ng/dL (240-950)
== END 2020-09-25 03:12 | disposition home or self-care (01) ==
LOC: LBO 03:11
PROVIDERS: PCP Nurse Practitioner Family; Visit Provider Nurse Practitioner Family
DX: E29.1 Testicular hypofunction (principal)
CPT/HCPCS: 36415; 84402; 84403

== ENCOUNTER 2020-11-13 01:55 | Outpatient (CLI) | payer MEDICARE, BC, SELFPAY ==
[2020-11-13 11:56] LABS: FREE T4 0.73 ng/dL (0.76-1.46); TSH 3.72 uIU/mL (0.36-3.74)
[2020-11-23 12:07] LABS: Testosterone, Free 17.8 ng/dL (3.28-12.2); Testosterone, Total 712 ng/dL (240-950)
== END 2020-11-13 01:56 | disposition home or self-care (01) ==
LOC: LBO 01:55
PROVIDERS: PCP Nurse Practitioner Family; Visit Provider Nurse Practitioner Family
DX: E29.1 Testicular hypofunction (principal); E03.9 Hypothyroidism, unspecified
CPT/HCPCS: 36415; 84402; 84403; 84439; 84443

== ENCOUNTER 2021-01-07 03:29 | Outpatient (CLI) | payer MEDICARE, BC, SELFPAY ==
[2021-01-07 10:26] LABS: Abs Immature Grans 0.01 10^3/uL (0.0-0.06); Absolute Basophil Count 0.06 10^3/uL (0.0-0.2); Absolute Eosinophil Count 0.18 10^3/uL (0.0-0.7); Absolute Lymphocyte Count 1.42 10^3/uL (1.2-3.4); Absolute Monocyte Count 0.47 10^3/uL (0.1-0.8); Absolute Neutrophil Count 2.22 10^3/uL (1.2-6.7); Basophils % 1.4; Eosinophils % 4.1; HCT 47.3 % (40.0-50.0); HGB 15.4 g/dL (13.5-17.5); Immature Grans % 0.2; Lymphocytes % 32.6; MCH 32.1 pg (27.0-33.0); MCHC 32.6 % (32.0-36.0); MCV 98.5 fL (80-95); Monocytes % 10.8; Neutrophils % 50.9; Nucleated RBC 0 %; Platelet Count 242 10^3/uL (130-400); RDW 12.9 % (11.8-14.1); RDW-SD 47.5 fL; WBC 4.36 10^3/uL (4.4-10.8)
[2021-01-07 10:40] LABS: ESR 6 mm/hr (0-20)
[2021-01-07 11:42] LABS: ALT 32 U/L (16-63); AST 26 U/L (15-37); Alkaline Phosphatase 79 U/L (46-116); Anion Gap 11.3 mmol/L (3-11); BUN 19 mg/dL (7-18); Bilirubin, Total 0.6 mg/dL (0.2-1.0); C-Reactive Protein 0.07 mg/dL (0.0-0.3); CO2 27.7 mmol/L (21.0-32.0); CREATININE 1.1 mg/dL (0.70-1.30); Calcium 9.3 mg/dL (8.5-10.1); Chloride 103 mmol/L (98-107); Glucose 83 mg/dL (74-106); Potassium 4.3 mmol/L (3.5-5.1); Sodium 142 mmol/L (136-145); TSH 2.39 uIU/mL (0.36-3.74)
[2021-01-07 16:56] LABS: Rheumatoid Factor <8.6 IU/mL (<12.0)
[2021-01-08 11:53] LABS: Lyme Ab w Rflx to Lyme Confirm Negative (Negative)
[2021-01-08 21:39] LABS: Anaplasma phagocytophilum Negative (Negative); B. miyamotoi PCR Negative (Negative); Babesia divergens/MO-1 Negative (Negative); Babesia duncani Negative (Negative); Babesia microti Negative (Negative); Ehrlichia chaffeensis Negative (Negative); Ehrlichia ewingii/canis Negative (Negative); Ehrlichia muris eauclairensis Negative (Negative)
== END 2021-01-07 03:30 | disposition home or self-care (01) ==
LOC: LBO 03:29
PROVIDERS: PCP Nurse Practitioner Family; Visit Provider Nurse Practitioner Family
DX: M25.59 Pain in other specified joint (principal); E03.9 Hypothyroidism, unspecified; M25.551 Pain in right hip; M25.552 Pain in left hip; M25.561 Pain in right knee; M25.562 Pain in left knee
CPT/HCPCS: 36415; 80053; 85652; 87798; 84439; 84443; 85025; 86140; 86431; 86618

== ENCOUNTER 2021-03-22 03:32 | Outpatient (CLI) | payer MEDICARE, BC, SELFPAY ==
[2021-03-22 11:50] LABS: FREE T4 0.81 ng/dL (0.76-1.46); TSH 1.41 uIU/mL (0.36-3.74)
[2021-03-22 18:24] LABS: PSA, Screening 0.8 ng/mL (0.0-6.5)
== END 2021-03-22 03:33 | disposition home or self-care (01) ==
LOC: LBO 03:33
PROVIDERS: PCP Nurse Practitioner Family; Visit Provider Nurse Practitioner Family
DX: E03.9 Hypothyroidism, unspecified (principal); Z12.5 Encounter for screening for malignant neoplasm of prostate
CPT/HCPCS: 36415; 84153; 84439; 84443

== ENCOUNTER 2021-06-18 10:40 | Outpatient (CLI) | payer MEDICARE, BC, SELFPAY ==
--- NOTE | 2021-06-18 10:30 | DI.RAD_ITS ---
Exam(s) XR HIP RT COMPLETE AP PELVIS EXAM: XR HIP RT COMPLETE AP PELVIS CLINICAL HISTORY: s/p cannulated screw. TECHNIQUE: 2D digital imaging was performed of the right hip. Two images were obtained. AP pelvis a nd lateral right hip views were obtained. COMPARISON: No exams were available for comparison FINDINGS: BONES: 4 cannulated screws are seen transfixing the old subcapital right femoral neck fracture. No n ew fracture or dislocation. JOINTS: The joint spaces are well maintained. No joint effusion is present. SOFT TISSUE: Normal. IMPRESSION: Stable postoperative changes. DATA REPOSITORY: RADIATION DOSE DELIVERED:
== END 2021-06-18 10:41 | disposition home or self-care (01) ==
LOC: DIORS 10:41
PROVIDERS: PCP Nurse Practitioner Family; Referring Provider Nurse Practitioner Family; Visit Provider Student in an Organized Health Care Education/Training Program
DX: M25.551 Pain in right hip (principal); Z87.81 Personal history of (healed) traumatic fracture; M16.51 Unilateral post-traumatic osteoarthritis, right hip
CPT/HCPCS: 99203; 73502

== ENCOUNTER 2021-07-12 04:09 | Outpatient (CLI) | payer MEDICARE, BC, SELFPAY ==
[2021-07-12 12:53] LABS: Source Nasal/Nares
[2021-07-12 16:08] LABS: COVID-19 PCR Negative (Negative)
== END 2021-07-12 04:10 | disposition home or self-care (01) ==
LOC: LBO 04:09
PROVIDERS: PCP Nurse Practitioner Family; Visit Provider Student in an Organized Health Care Education/Training Program
DX: Z20.822 Contact with and (suspected) exposure to COVID-19 (principal); Z01.818 Encounter for other preprocedural examination
CPT/HCPCS: 87635; U0005

== ENCOUNTER 2021-07-14 12:00 | Day surgery (SDC) | payer MEDICARE, BC, SELFPAY ==
[2021-07-14] VITALS (9 sets, daily range): BP systolic 128–159; BP diastolic 69–86; PULSE 50–71; RESP 15–20; TEMP 36.4–36.6; O2SAT 98–100; BMI 23.6
--- NOTE | 2021-07-14 09:57 | PDOC.DSDIS_ITS ---
Discharge Plan Disposition Patient Disposition: HOME Condition: Good Discharge Details Reason For Visit: Painful orthopedic hardware - right hip Attending Provider: Jordan Baca Primary Care Provider: Kylie Hughes Home Meds and New Rx's Prescriptions: New hydrocodone-acetaminophen 5-325 mg tablet 1 tab PO Q6H PRN (Reason: severe pain) Qty: 6 0RF Rx Instructions: Take one tablet up to every 6 hours as needed for severe postoperative pain acetaminophen 500 mg tablet 500 mg PO Q6H PRN (Reason: pain) Qty: 60 2RF ibuprofen 600 mg tablet 600 mg PO TID PRN (Reason: pain) Qty: 60 0RF Continued lamotrigine 150 mg tablet 300 mg PO HS 0RF levothyroxine 100 mcg capsule 100 mcg PO DAILY Qty: 90 4RF (DME) BD Luer-Saqib Tip Control Syring 1 EACH syringe 1 ea Miscellaneous Monthly Qty: 6 2RF Rx Instructions: With 1 inch IM needle testosterone cypionate 200 mg/mL oil 150 mg IM Q2W Qty: 6 0RF lithium carbonate 300 mg tablet extended release 300 mg PO HS 0RF Label Comments: TAKE ONE TABLET BY MOUTH AT BEDTIME Discharge Instructions Additional Instructions: Removal of Hip Hardware Discharge Instructions Activity: You may move and walk as tolerated but always use two crutches or a walker until instructed otherwise. You should try to take short walks a few times a day. You have no restrictions on movement or positioning, but do not try to force what you do. You will find some stiffness and weakness. Do not try to strengthen this too early, continue to practice walking. Dressing: Keep the surgical dressing in place for at least one week. After the first week it may be removed and replace with light gauze and tape or nothing. It may get wet after 3 days but avoid soaking the dressing. If it gets wet, just lightly pat dry. Medications: - You should take Tylenol and an anti-inflammatory, Ibuprofen, as your primary pain control medications - You have been prescribed a stronger pain medication Hydrocodone for breakthrough pain, take as needed as prescribed. - If you have constipation you should take Colace or Miralax (both [id number]). It takes most people 3-4 days to have a bowel movement. Follow-up: 2 weeks Referrals: Jordan Baca MD [ [facility] STAFF PHYSICIAN] - Activity:: Activity as Tolerated Remove Dressings/Wound Care:: Do Not Remove Shower/Bathe:: Cover Diet:: As Tolerated Discharge Orders Discharge Orders: Discharge Order (Routine); Ordered 07/14/21 Ordered By: Deana Mehta
[2021-07-14] MEDS: Lactated Ringers 1,000 ML 80 ML IV (12:44)
--- NOTE | 2021-07-14 13:00 | DI.RAD_ITS ---
Exam(s) XR HIP RT IN OR EXAM: XR HIP RT IN OR CLINICAL HISTORY: Screw removal Right Hip TECHNIQUE: 2D and realtime digital imaging was performed. COMPARISON: CR XR HIP RT COMPLETE AP PELVIS from 06/18/2021 FINDINGS: C-arm fluoroscopy was utilized by Dr. Baca during right hip art where removal. Hard copies show removal of previously noted leg screws of the proximal femur. IMPRESSION: RADIATION DOSE DELIVERED: steve Johansen=3.67 mGy
--- NOTE | 2021-07-14 13:12 | W.ANESPRE ---
General Info Date of Service Date Performed: 07/14/21 Height: 5 ft 10.5 in Weight: 75.6 kg Body Mass Index (BMI): 23.6 Surgical Procedure: Operation Date: 07/14/21 14:10 Proposed Procedure Side Surgeon p Hip Screw Removal Right Jordan Baca MD Meds Allergies and Home Medications Allergies Allergy/AdvReac Type Severity Reaction Status Date / Time latex AdvReac Intermediate Rash Verified 07/14/21 12:06 Home Medication Medication Instructions Recorded syringe (disposable) 10 mL (BD #6 ea 12/18/15 Luer-Saqib Tip Control Syringe) lamotrigine 150 mg tablet 300 mg PO HS tab 06/30/21 levothyroxine 100 mcg capsule 100 mcg PO DAILY #90 tab-cap 07/01/21 testosterone cypionate 200 mg/mL 150 mg (0.75 mL) IM Q2W #6 vial 07/05/21 intramuscular oil lithium carbonate 300 mg 300 mg PO HS 07/12/21 tablet,extended release acetaminophen 500 mg tablet 500 mg PO Q6H PRN #60 tab 07/14/21 hydrocodone 5 mg-acetaminophen 325 1 tab PO Q6H PRN #6 tab 07/14/21 mg tablet ibuprofen 600 mg tablet 600 mg PO TID PRN #60 tab 07/14/21 Current Visit Medications: Current Medications Generic Name Dose Route Start Last Admin Trade Name Freq PRN Reason Stop Dose Admin Acetaminophen 650 mg 07/14/21 09:55 Acetaminophen 325 Mg Tab PO Q4H PRN PRN Hydrocodone Bitart/Acetaminophen 0 tab 07/14/21 09:55 Hydrocodone 5/Acetaminophen 325 Tab PO Q3H PRN PRN Pain Ringer's Solution 1,000 mls @ 80 mls/hr 07/14/21 06:00 07/14/21 12:44 IV 08/05/21 23:59 80 mls/hr INFUSION PETER Administration Cefazolin Sodium/Dextrose 2 gm in 50 mls @ 100 mls/hr 07/14/21 06:00 Ancef Duplex IVPB 07/14/21 23:59 PREOP PETER IV Miscellaneous Supplies 1 each 07/14/21 06:00 Iv Access IV 08/05/21 23:59 DIRECTED PETER Sodium Chloride 0 ml 07/14/21 06:00 Normal Saline Flush 10 Ml Syr IV 03/31/22 23:59 PRN PRN Sodium Chloride 0 ml 07/14/21 06:00 Normal Saline 10 Ml Vial IJ 08/05/21 23:59 DIRECTED PRN Sterile Water 0 ml 07/14/21 06:00 Water,Injection,Sterile 10 Ml Vial IJ 08/05/21 23:59 DIRECTED PRN PFSH Active Problems Active Problems: Problem Status Onset Code Painful orthopaedic hardware T84.84XA Post-traumatic osteoarthritis of right hip M16.51 Hypogonadism in male E29.1 Hypothyroidism E03.9 Osteoporosis M81.0 Hyperlipidemia E78.5 Major depressive disorder F32.9 Generalized anxiety disorder F41.1 ADHD (attention deficit hyperactivity disorder), inattentive type F90.0 Raynauds syndrome I73.00 Hand arthritis M19.049 Medical History Medical History Degenerative joint disease (DJD) of lumbar spine Subcapital fracture of right hip (~06/2020) Suicide attempt (04/06/04) Surgical History Surgical History Hx of reduction of closed fracture (07/01/20) Closed Reduction of right hip subcapital fracture with cannulated screw fixation with four 6.5 cannulated screws S/P inguinal hernia repair S/P laminectomy (09/19/19) L4-L5 medial facetectomies and laminectomies, right L3-4 discectomy with [facility] Neurosurgery Tobacco Smoking/Tobacco Use Status: Former Tobacco Use Passive smoking exposure: Yes Second hand exposure: No Alcohol Alcohol Intake: former Substance Use Substance use: Occasionally Substance use type: marijuana Vital Signs and Lab Results Vital Signs Most Recent Vital Signs in EMR: Most Recent Vital Signs Temp Pulse Resp BP Pulse Ox 36.5 C 50 L 18 128/79 100 07/14/21 12:23 07/14/21 12:23 07/14/21 12:23 07/14/21 12:23 07/14/21 12:23 Lab Results Blood Type / Crossmatch: No Data to Display Complete Blood Count: No Data to Display Complete Metabolic Panel: No Data to Display Liver Function Panel: No Data to Display Coagulation Panel: No Data to Display Cardiac Panel: No Data to Display Arterial Blood Gas: No Data to Display Venous Blood Gas: No Data to Display Pancreas Panel: No Data to Display Thyroid Panel: No Data to Display Infectious Disease: Coronavirus (COVID-19)(PCR) Negative (Negative) 07/12/21 10:10 07/12/21 Coronavirus 2019 Source Nasal/Nares 07/12/21 10:10 07/12/21 Blood Cultures: No Data to Display Toxicology Panel: No Data to Display Anesthesia Assessment and Plan Anesthesia History Personal History: No History of Anesthesia Complications Family History: No Family History of Anesthesia Complications Exercise Tolerance Exercise Tolerance: Metabolic Equivalents>4 Cardiac & Pulmonary Exam Cardiac Exam: Normal S1/S2 Heart Sounds Pulmonary Exam: Clear Bilateral Breath Sounds Implantable Cardiac Device Does patient have a Pacemaker or an ICD?: No Airway Exam Known Difficult Airway: No Mallampati Class: 1 Mouth Opening: Normal (> 3cm) Thyromental Distance: Greater than 3 cm Neck Range of Motion: Full ROM Neck Circumference: Normal Teeth Condition: Normal Dentition ASA Classification ASA Score: ASA 2 Emergency Case?: No NPO Status NPO Status: NPO Clears >2 hours, Solids >8 hours Anesthesia Plan Resuscitation Status: Full Code Anesthesia Technique: Spinal Anesthesia Airway Planned: Natural Airway Monitors Used: Standard Monitors Preoperative Comments:: 71 yo male for hip screw removal. Sig PMHx: hypothyroid (on replacement), hypogonad (on replacement), Anxiety/depression, nightly cannabis for sleeping. Plan: Discussed risks, benefits, and alternatives of GA vs. spinal, he really wants a spinal.
[2021-07-14] MEDS: ceFAZolin 2 GM/50 ML BAG IVPB (14:01)
[2021-07-14] MEDS: Bupivacaine 0.5% Pres-Free 30 ML VIAL (14:31)
--- NOTE | 2021-07-14 15:57 | W.ANESPOSTOP ---
Postoperative Evaluation Date, Time and Location Date Performed: 07/14/21 Time Performed: 15:57 Patient Location: Day Surgery Unit Vital Signs Most Recent Imported Vital Signs: Most Recent Vital Signs Temp Pulse Resp BP Pulse Ox 36.6 C 69 20 135/73 100 07/14/21 15:35 07/14/21 15:35 07/14/21 15:35 07/14/21 15:35 07/14/21 15:35 Pain Score Most Recent Pain Score: Most Recent Pain Score Pain Level 0 07/14/21 15:35 Assessment Mental Status: Awake (Alert & Oriented to Patient Baseline) Airway and Respiratory Function: Patent airway with normal (patient baseline) respiratory exam Cardiovascular Function: Hemodynamically Stable Hydration Status: Adequately Hydrated Nausea & Vomiting: No Nausea or Vomiting Pain: Pain is tolerable per patient Peripheral Nerve Block: Patient did not receive a nerve block
--- NOTE | 2021-07-15 13:06 | ROE_ITS ---
Date of service: 07/14/21 Time of Service: 14:00 Operative Note Operative Note DATE OF PROCEDURE: 07/14/21 PRE-OP DIAGNOSIS: Painful hardware - right hip PROCEDURE: Removal of hardware - right hip SURGEON: Jordan Baca REPAIRER CONTROLLER TESTER: Deana Mehta ANESTHESIA TYPE: General:No Airway Refer to Anesthesia Record ESTIMATED BLOOD LOSS: 10 COMPLICATIONS: None Patient was transported to: PACU Patient's condition: stable Indications: Juan is a 71-year-old who suffered a hip fracture about his right side about a year ago. He was fixed with 4 cannulated screws and [facility]. He has had some progressive right hip pain. To help understand the hip pain better I recommended removal of the screws. Is possible screws could be causing pain but also this would allow for better imaging and evaluation of the right hip moving forward. I discussed the technical details of the surgery. I reviewed the risk of the procedure to include bleeding, infection, pain, stiffness, refracture. Despite these risk, he elects to proceed. Findings: Four cannulated screws were removed from the right hip through a portion of the previous incision. Procedure Description: Juan was greeted in the preoperative holding area. His identity was confirmed the correct side was identified and marked. The consent was reviewed the patient and signed. History physical was updated. He was taken to the operating room. He is placed in supine position on a radiolucent table. A bump was placed high on the right hip to allow access to the surgical site. Prophylactic anabiotic's in the form of cefazolin were administered. A timeout was performed safe surgery. The right hip area was prepped ChloraPrep and draped in a standard fashion. Using intraoperative fluoroscopy I identified the trajectory of the screws and estimated an area of approach to remove the screws. A 2 cm incision was made to the previous surgical site and this was taken sharply through the skin and soft tissues deep including the IT band. Blunt dissection was carried down deeper to the screw heads were palpable. I then used a wire from the 6.5 mm cannulated screw system to place into the cannula the screw. This was done without difficulty. Unfortunately, the screwdriver that should fit the screw as reported in the operative port did not. I then utilized a broken screw removal set to find a screwdriver head which did fit the screws although was unable to use the cannulated portion. Nevertheless, is able to manually palpate the screw heads into the screwdriver into the screw heads and remove them without difficulty. There is excellent purchase of the bone around the screws themselves requiring significant force to remove them. However, they were done so without difficulty. In total, 4 screws were removed. This wound was then thoroughly irrigated. The soft tissues and deep tissues including the periosteum and the deep muscle was with 0.25% bupivacaine. The wound was once again irrigated. The deep tissues were closed with a #0 Vicryl. The soft tissues were closed with 2-0 Vicryl followed by 4-0 Monocryl in a subcuticular fashion. The skin was reinforced with skin glue. A Mepilex over dressing was applied. I then the case all counts are correct. Juan was transferred back to the same-day surgery in stable condition.
== END 2021-07-14 17:06 | disposition home or self-care (01) ==
LOC: SUR 12:00
PROVIDERS: PCP Nurse Practitioner Family; Visit Provider Student in an Organized Health Care Education/Training Program
PROC: (CPT 20680; principal; 2021-07-14 14:00)
DX: T84.84XA Pain due to internal orthopedic prosthetic devices, implants and grafts, initial encounter (principal); I73.00 Raynaud's syndrome without gangrene; E03.9 Hypothyroidism, unspecified; M81.0 Age-related osteoporosis without current pathological fracture; E78.5 Hyperlipidemia, unspecified; F32.9 Major depressive disorder, single episode, unspecified; F41.1 Generalized anxiety disorder
CPT/HCPCS: 20680; 73501; J0690; J1100; J1885; J2001; J2405; J2704

== ENCOUNTER 2021-07-26 09:55 | Outpatient (CLI) | payer MEDICARE, BC, SELFPAY ==
--- NOTE | 2021-07-26 09:00 | DI.RAD_ITS ---
Exam(s) XR HIP RT AP LAT ONLY EXAM: XR HIP RT AP LAT ONLY CLINICAL HISTORY: S/P HARDWARE REMOVAL R HIP. TECHNIQUE: 2D digital imaging was performed. COMPARISON: CR XR HIP RT COMPLETE AP PELVIS from 06/18/2021 FINDINGS: Two views The previously present 4 screws have been removed. Channels visible. No fracture line seen. Sclero tic density in the subcapital region denotes healing fracture site. Minimal degenerative changes in the hip. No osseous lesions. No radiographic evidence of osteomyelitis. IMPRESSION: DATA REPOSITORY: RADIATION DOSE DELIVERED:
== END 2021-07-26 09:56 | disposition home or self-care (01) ==
LOC: DIORS 09:55
PROVIDERS: PCP Nurse Practitioner Family; Referring Provider Nurse Practitioner Family; Visit Provider Physician Assistant
DX: M16.51 Unilateral post-traumatic osteoarthritis, right hip (principal); Z47.89 Encounter for other orthopedic aftercare; T84.84XA Pain due to internal orthopedic prosthetic devices, implants and grafts, initial encounter
CPT/HCPCS: 99214; 73502

== ENCOUNTER 2021-07-29 03:37 | Outpatient (CLI) | payer MEDICARE, BC, SELFPAY ==
[2021-07-29 12:10] LABS: HCT 45.5 % (40.0-50.0); HGB 14.7 g/dL (13.5-17.5)
[2021-07-29 13:12] LABS: Vitamin D 25 Total 40.1 ng/mL (30-100)
[2021-07-29 13:19] LABS: Albumin 3.9 g/dL (3.4-5.0); Calcium 9.6 mg/dL (8.5-10.1); FREE T4 0.92 ng/dL (0.76-1.46); TSH 0.63 uIU/mL (0.36-3.74)
[2021-07-29 22:36] LABS: FSH <0.3 mIU/mL (See Note); LH <0.3 mIU/mL (3.1-34.6); PSA, Screening 0.7 ng/mL (0.0-6.5); Prolactin 3.1 ng/mL (2.1-17.7)
[2021-07-30 10:25] LABS: Parathyroid Hormone,Intact 52 pg/mL (19-88)
[2021-08-04 16:09] LABS: Testosterone, Free 13.3 ng/dL (3.28-12.2); Testosterone, Total 359 ng/dL (240-950)
== END 2021-07-29 03:38 | disposition home or self-care (01) ==
LOC: LBO 03:37
PROVIDERS: PCP Nurse Practitioner Family; Visit Provider Student in an Organized Health Care Education/Training Program
DX: E03.9 Hypothyroidism, unspecified (principal); M80.00XS Age-related osteoporosis with current pathological fracture, unspecified site, sequela; Z12.5 Encounter for screening for malignant neoplasm of prostate
CPT/HCPCS: 36415; 82306; 84153; 84402; 84403; 82040; 82310; 83001; 83002; 83970; 84146; 84439; 84443; 85014; 85018

== ENCOUNTER 2021-08-13 11:13 | Outpatient (CLI) | payer MEDICARE, BC, SELFPAY ==
--- NOTE | 2021-08-13 10:45 | DI.RAD_ITS ---
Exam(s) XR PELVIS AP EXAM: XR PELVIS AP CLINICAL HISTORY: pre op R BALBINA. TECHNIQUE: 2D digital imaging was performed. COMPARISON: CR XR HIP RT COMPLETE AP PELVIS from 06/18/2021 FINDINGS: Single view The previously present 4 screws in the right femoral head-neck and been removed. Appearance is stabl e. Fracture level appears healed. No radiographic evidence of osteomyelitis. No joint space narrow ing joint. IMPRESSION: DATA REPOSITORY: RADIATION DOSE DELIVERED:
== END 2021-08-13 11:14 | disposition home or self-care (01) ==
LOC: DIORS 11:13
PROVIDERS: PCP Nurse Practitioner Family; Referring Provider Nurse Practitioner Family; Visit Provider Student in an Organized Health Care Education/Training Program
DX: M16.51 Unilateral post-traumatic osteoarthritis, right hip (principal); Z47.89 Encounter for other orthopedic aftercare; Z01.818 Encounter for other preprocedural examination
CPT/HCPCS: 72170

== ENCOUNTER 2021-08-24 01:26 | Outpatient (RCR) | payer MEDICARE, BC, SELFPAY ==
[2021-08-24] MEDS: ZOLEDRONIC ACID/MANNITOL/WATER 5 MG/100 ML BTL 300 MG IVPB (08:11)
[2021-08-24] MEDS: Normal Saline Flush 10 ML SYR IVP (08:11)
== END 2021-09-04 23:59 | disposition home or self-care (01) ==
LOC: INF 01:26
PROVIDERS: PCP Nurse Practitioner Family; Visit Provider Nurse Practitioner Family
DX: M81.0 Age-related osteoporosis without current pathological fracture (principal)
CPT/HCPCS: 96365; J3489

== ENCOUNTER 2021-09-07 02:43 | Outpatient (CLI) | payer MEDICARE, BC, SELFPAY ==
[2021-09-07 09:50] LABS: Lithium 0.5 mmol/l (0.6-1.2)
[2021-09-07 10:01] LABS: TSH 0.38 uIU/mL (0.36-3.74)
== END 2021-09-07 02:44 | disposition home or self-care (01) ==
LOC: LBO 02:43
PROVIDERS: PCP Nurse Practitioner Family; Visit Provider Nurse Practitioner Family
DX: E03.9 Hypothyroidism, unspecified (principal); Z79.899 Other long term (current) drug therapy; Z51.81 Encounter for therapeutic drug level monitoring
CPT/HCPCS: 36415; 80178; 84439; 84443

== ENCOUNTER → 2021-09-14 13:00 | Outpatient (BNVA) | payer MEDICARE, BC, SELFPAY | PROVIDERS: PCP Nurse Practitioner Family; Referring Provider Nurse Practitioner Family; Visit Provider Physician Assistant Surgical | DX: M16.51 Unilateral post-traumatic osteoarthritis, right hip (principal) ==

== ENCOUNTER 2021-09-20 03:10 | Outpatient (CLI) | payer MEDICARE, BC, SELFPAY ==
[2021-09-20 12:57] LABS: Source Nasal/Nares
[2021-09-20 20:33] LABS: COVID-19 PCR Negative (Negative)
== END 2021-09-20 03:11 | disposition home or self-care (01) ==
PROVIDERS: PCP Nurse Practitioner Family; Visit Provider Student in an Organized Health Care Education/Training Program
DX: Z20.822 Contact with and (suspected) exposure to COVID-19 (principal); Z01.818 Encounter for other preprocedural examination
CPT/HCPCS: 36415; 80048; 85027; 87635; U0005

== ENCOUNTER 2021-09-20 03:28 | Outpatient (CLI) | payer MEDICARE, BC, SELFPAY ==
[2021-09-20 10:31] LABS: HCT 46.1 % (40.0-50.0); HGB 14.9 g/dL (13.5-17.5); MCHC 32.3 % (32.0-36.0); MCV 102 fL (80-95); MPV 10.2 fL (8.0-11.0); Platelet Count 231 10^3/uL (130-400); RBC 4.51 10^6/uL (4.36-5.78); RDW 12.9 % (11.8-14.1); RDW-SD 48.6 fL; WBC 5.63 10^3/uL (4.4-10.8)
[2021-09-20 11:06] LABS: Anion Gap 9.3 mmol/L (3-11); BUN 17 mg/dL (7-18); CO2 25.7 mmol/L (21.0-32.0); CREATININE 1.1 mg/dL (0.70-1.30); Calcium 9.1 mg/dL (8.5-10.1); Chloride 105 mmol/L (98-107); Glucose 88 mg/dL (74-106); Potassium 4.8 mmol/L (3.5-5.1); Sodium 140 mmol/L (136-145)
== END 2021-09-20 03:29 | disposition home or self-care (01) ==
LOC: LBO 03:28
PROVIDERS: PCP Nurse Practitioner Family; Visit Provider Student in an Organized Health Care Education/Training Program
DX: M25.551 Pain in right hip (principal); M16.51 Unilateral post-traumatic osteoarthritis, right hip; Z01.818 Encounter for other preprocedural examination; Z01.812 Encounter for preprocedural laboratory examination
CPT/HCPCS: 36415; 80048; 85027

== ENCOUNTER 2021-09-22 06:01 | Day surgery (SDC) | payer MEDICARE, BC, SELFPAY ==
[2021-09-21 09:59] VITALS: BP 122/76; PULSE 61; RESP 20; TEMP 36.5; O2SAT 100
[2021-09-22] VITALS (7 sets, daily range): BP systolic 107–127; BP diastolic 64–84; PULSE 61–76; RESP 16–22; TEMP 36–36.8; O2SAT 92–100; BMI 23.6
--- NOTE | 2021-09-22 06:09 | W.ANESPRE ---
General Info Date of Service Date Performed: 09/22/21 Height: 5 ft 10 in Weight: 74.843 kg Body Mass Index (BMI): 23.6 Surgical Procedure: Operation Date: 09/22/21 07:50 Proposed Procedure Side Surgeon p Hip Total Hip Anterior Right Jordan Baca MD Meds Allergies and Home Medications Allergies Allergy/AdvReac Type Severity Reaction Status Date / Time latex AdvReac Intermediate Rash Verified 09/22/21 06:24 Home Medication Medication Instructions Recorded syringe (disposable) 10 mL (BD #6 ea 12/18/15 Luer-Saqib Tip Control Syringe) lamotrigine 150 mg tablet 300 mg PO HS 06/30/21 levothyroxine 100 mcg capsule 100 mcg PO DAILY #90 tab-caps 07/01/21 testosterone cypionate 200 mg/mL 150 mg (0.75 mL) IM Q2W #6 vials 07/05/21 intramuscular oil ibuprofen 600 mg tablet 600 mg PO TID PRN pain #60 tabs 07/14/21 lithium carbonate 300 mg 450 mg PO HS 08/13/21 tablet,extended release calcium carbonate 600 mg calcium 600 mg PO DAILY 09/14/21 (1,500 mg) tablet (Calcium) cholecalciferol (vitamin D3) 50 50 mcg PO DAILY 09/14/21 mcg (2,000 unit) capsule magnesium 200 mg tablet 200 mg PO DAILY 09/14/21 acetaminophen 500 mg capsule 1,000 mg PO Q8H PRN PRN #90 caps 09/22/21 aspirin 81 mg tablet,delayed 81 mg PO BID #60 tabs 09/22/21 release ibuprofen 600 mg tablet 600 mg PO TID #90 tabs 09/22/21 oxycodone 5 mg tablet 5 mg PO Q4H PRN #18 tabs 09/22/21 pantoprazole 40 mg tablet,delayed 40 mg PO DAILY #30 tabs 09/22/21 release (Protonix) Current Visit Medications: Current Medications Generic Name Dose Route Start Last Admin Trade Name Freq PRN Reason Stop Dose Admin Acetaminophen 1,000 mg 09/22/21 06:00 Acetaminophen 500 Mg Tab PO PREOP PETER Celecoxib 400 mg 09/22/21 06:00 Celecoxib 200 Mg Cap PO PREOP PETER Tranexamic Acid 1,000 mg/ 60 mls @ 360 mls/hr 09/22/21 06:00 Sodium Chloride IV PREOP PETER Ringer's Solution 1,000 mls @ 80 mls/hr 09/22/21 06:00 IV 10/21/21 23:59 INFUSION PETER Cefazolin Sodium/Dextrose 2 gm in 50 mls @ 100 mls/hr 09/22/21 06:00 Ancef Duplex IVPB 10/21/21 23:59 PREOP PETER IV Miscellaneous Supplies 1 each 09/22/21 06:00 Iv Access IV 10/21/21 23:59 DIRECTED PETER Sodium Chloride 0 ml 09/22/21 06:00 Normal Saline Flush 10 Ml Syr IV 10/21/21 23:59 PRN PRN Sodium Chloride 0 ml 09/22/21 06:00 Normal Saline 10 Ml Vial IJ 10/21/21 23:59 DIRECTED PRN Sterile Water 0 ml 09/22/21 06:00 Water,Injection,Sterile 10 Ml Vial IJ 10/21/21 23:59 DIRECTED PRN PFSH Active Problems Active Problems: Problem Status Onset Code Post-traumatic osteoarthritis of right hip M16.51 Hypogonadism in male E29.1 Hypothyroidism E03.9 Osteoporosis M81.0 Hyperlipidemia E78.5 Major depressive disorder F32.9 Generalized anxiety disorder F41.1 ADHD (attention deficit hyperactivity disorder), inattentive type F90.0 Raynauds syndrome I73.00 Hand arthritis M19.049 Medical History Medical History Degenerative joint disease (DJD) of lumbar spine Subcapital fracture of right hip (~06/2020) Suicide attempt (04/06/04) Surgical History Surgical History Hx of reduction of closed fracture (07/01/20) Closed Reduction of right hip subcapital fracture with cannulated screw fixation with four 6.5 cannulated screws Painful orthopaedic hardware Removal of hip hardware DOS: 07/14/2021 S/P inguinal hernia repair S/P laminectomy (09/19/19) L4-L5 medial facetectomies and laminectomies, right L3-4 discectomy with [facility] Tobacco Smoking/Tobacco Use Status: Former Tobacco Use Passive smoking exposure: Yes Second hand exposure: No Alcohol Alcohol Intake: former Substance Use Substance use: Occasionally Substance use type: marijuana Vital Signs and Lab Results Vital Signs Most Recent Vital Signs in EMR: Temp Pulse Resp BP Pulse Ox 36.5 C 61 20 122/76 100 09/21/21 09:59 09/21/21 09:59 09/21/21 09:59 09/21/21 09:59 09/21/21 09:59 Lab Results Blood Type / Crossmatch: No Data to Display Complete Blood Count: White Blood Count 5.63 10^3/uL (4.4-10.8) 09/20/21 10:00 Red Blood Count 4.51 10^6/uL (4.36-5.78) 09/20/21 10:00 Hemoglobin 14.9 g/dL (13.5-17.5) 09/20/21 10:00 Hematocrit 46.1 % (40.0-50.0) 09/20/21 10:00 Platelet Count 231 10^3/uL (130-400) 09/20/21 10:00 Complete Metabolic Panel: Sodium Level 140 mmol/L (136-145) 09/20/21 10:00 Potassium Level 4.8 mmol/L (3.5-5.1) 09/20/21 10:00 Chloride Level 105 mmol/L (98-107) 09/20/21 10:00 Carbon Dioxide Level 25.7 mmol/L (21.0-32.0) 09/20/21 10:00 Blood Urea Nitrogen 17 mg/dL (7-18) 09/20/21 10:00 Creatinine 1.1 mg/dL (0.70-1.30) 09/20/21 10:00 Estimated GFR/1.73 m2 >= 60.00 (mL/min/1.73m2) 09/20/21 10:00 Calcium Level 9.1 mg/dL (8.5-10.1) 09/20/21 10:00 Glucose Level 88 mg/dL (74-106) 09/20/21 10:00 Liver Function Panel: No Data to Display Coagulation Panel: No Data to Display Cardiac Panel: No Data to Display Arterial Blood Gas: No Data to Display Venous Blood Gas: No Data to Display Pancreas Panel: No Data to Display Thyroid Panel: Thyroid Stimulating Hormone (TSH) 0.38 uIU/mL (0.36-3.74) 09/07/21 08:58 Infectious Disease: Coronavirus (COVID-19)(PCR) Negative (Negative) 09/20/21 10:29 Coronavirus 2019 Source Nasal/Nares 09/20/21 10:29 Blood Cultures: No Data to Display Toxicology Panel: No Data to Display Anesthesia Assessment and Plan Anesthesia History Personal History: No History of Anesthesia Complications Family History: No Family History of Anesthesia Complications Exercise Tolerance Exercise Tolerance: Metabolic Equivalents>4 Cardiac & Pulmonary Exam Cardiac Exam: Normal S1/S2 Heart Sounds Pulmonary Exam: Clear Bilateral Breath Sounds Implantable Cardiac Device Does patient have a Pacemaker or an ICD?: No Airway Exam Known Difficult Airway: No Mallampati Class: 1 Mouth Opening: Normal (> 3cm) Thyromental Distance: Greater than 3 cm Neck Range of Motion: Full ROM Neck Circumference: Normal Teeth Condition: Normal Dentition ASA Classification ASA Score: ASA 2 Emergency Case?: No NPO Status NPO Status: NPO Clears >2 hours, Solids >8 hours Anesthesia Plan Resuscitation Status: Full Code Anesthesia Technique: Spinal Anesthesia Airway Planned: Natural Airway Monitors Used: Standard Monitors Preoperative Comments:: 71 yo male for right hip arthroplasty. Sig PMHx: hypothyroid (on replacement), hypogonad (on replacement), Anxiety/depression, nightly cannabis for sleeping, lumbar spinal stenosis s/p L3-4 discectomy and l 4-5 facetectomies. Previous Anes: general w/o airway. mac 4 grade 2. Plan: would like spinal and to be awake. discussed spinal with spinal stenosis and previous spine surgery. understands that with a short-acting spinal he may start feeling the procedure near the end, at which point we would add on some sedation. he is agreeable and would still like to stay awake for as long as possible.
--- NOTE | 2021-09-22 06:24 | W.PM.DSUDISC ---
Discharge Plan Disposition Patient Disposition: HOME Condition: Stable Discharge Details Reason For Visit: Right BALBINA Attending Provider: Jordan Baca Primary Care Provider: Kylie Hughes Home Meds and New Rx's Prescriptions: New aspirin 81 mg tablet,delayed release (DR/EC) 81 mg PO BID Qty: 60 0RF pantoprazole [Protonix] 40 mg tablet,delayed release (DR/EC) 40 mg PO DAILY Qty: 30 0RF ibuprofen 600 mg tablet 600 mg PO TID Qty: 90 0RF acetaminophen 500 mg capsule 1,000 mg PO Q8H PRN PRNQty: 90 0RF oxycodone 5 mg tablet 5 mg PO Q4H PRNQty: 18 0RF Continued lamotrigine 150 mg tablet 300 mg PO HS levothyroxine 100 mcg capsule 100 mcg PO DAILY Qty: 90 4RF lithium carbonate 300 mg tablet extended release 450 mg PO HS cholecalciferol (vitamin D3) 50 mcg (2,000 unit) capsule 50 mcg PO DAILY calcium carbonate [Calcium 600] 600 mg calcium (1,500 mg) tablet 600 mg PO DAILY magnesium 200 mg tablet 200 mg PO DAILY (DME) BD Luer-Saqib Tip Control Syring 1 EACH syringe 1 ea Miscellaneous Monthly Qty: 6 Rx Instructions: With 1 inch IM needle testosterone cypionate 200 mg/mL oil 150 mg IM Q2W Qty: 6 0RF ibuprofen 600 mg tablet 600 mg PO TID PRN (Reason: pain) Qty: 60 0RF Discontinued acetaminophen 500 mg tablet 500 mg PO Q6H PRN (Reason: pain) Qty: 60 2RF Discharge Instructions Additional Instructions: Total Hip Discharge Instructions Activity: The most important activity is to walk. You should try to take short walks a few times a day. You have no restrictions on movement or positioning, but do not try to force what you do. You will find some stiffness and weakness with hip flexion (lifting your knee). Do not try to strengthen this too early, continue to practice walking and stairs and this will come. - Outpatient physical therapy can be helpful to help return you to a normal gait and improve your flexibility and strength. This can start around 2 weeks. For some patients, it?s not necessary. Usually this is determined at the time of discharge or at the first post-operative visit. - You should wear the MARLEEN hose on both legs for 2 weeks. Dressing: Keep the surgical dressing in place for at least one week. After the first week it may be removed and replace with light gauze and tape or nothing. It may get wet after 3 days but avoid soaking the dressing. If it gets wet, just lightly pat dry. It is important to always keep some gauze between skin folds, especially when you are sitting. Spend some time with the wound exposed when you are lying flat as the incision does wrinkle onto itself. Medications: - You should take Tylenol and an anti-inflammatory ibuprofen as your primary pain control medications. Please call the office for another alternative (Celebrex or Naproxen/Aleve). - You have been prescribed a stronger pain medication Oxycodone for breakthrough pain, take as needed as prescribed. - You have also been prescribed a stomach acid reduction agent Pantoprozole to help reduce stomach acid and reflux. - You will be taking Aspirin 81mg twice a day for DVT prevention unless instructed otherwise. - If you have constipation you should take Colace or Miralax (both [id number]). It takes most people 3-4 days to have a bowel movement. Follow-up: 2 weeks If you have any acute concerns or questions, please do not hesitate to contact the office at [phone]. You may contact Dr. Baca with any questions after hours through the hospital at [phone] or on his cell phone at [phone]. Referrals: Jordan Baca MD [ [facility] STAFF PHYSICIAN] - Equipment/Supplies: Walker Activity:: Activity as Tolerated Remove Dressings/Wound Care:: Do Not Remove Shower/Bathe:: 72 hours Diet:: As Tolerated Discharge Orders Discharge Orders: Discharge Order (Routine); Ordered 09/22/21 Ordered By: Kristi Willoughby DS: Diagnosis Discharge Diagnosis (1) Post-traumatic osteoarthritis of right hip: Status: Acute
[2021-09-22] MEDS: Acetaminophen 500 MG TAB 1000 MG PO (06:31)
[2021-09-22] MEDS: Celecoxib 200 MG CAP 400 MG PO (06:31)
[2021-09-22] MEDS: Lactated Ringers 1,000 ML 80 ML IV (07:05)
[2021-09-22] MEDS: ceFAZolin 2 GM/50 ML BAG IVPB (07:38)
--- NOTE | 2021-09-22 09:18 | DI.RAD_ITS ---
Exam(s) XR HIP RT IN OR EXAM: XR HIP RT IN OR CLINICAL HISTORY: Post-traumatic osteoarthritis of right hip. TECHNIQUE: 2D digital imaging was performed. COMPARISON: No exams were available for comparison FINDINGS: Fluoroscopy was provided intraoperatively during right hip arthroplasty. See procedure report for details. Total fluoroscopy time 29 seconds. Cumulative dose= 3.4366mGy IMPRESSION: DATA REPOSITORY: RADIATION DOSE DELIVERED:
--- NOTE | 2021-09-22 10:31 | W.ANESPOSTOP ---
Postoperative Evaluation Date, Time and Location Date Performed: 09/22/21 Time Performed: 10:31 Patient Location: Day Surgery Unit Vital Signs Most Recent Imported Vital Signs: Most Recent Vital Signs Temp Pulse Resp BP Pulse Ox 36.4 C L 61 16 119/64 95 09/22/21 10:05 09/22/21 10:05 09/22/21 10:05 09/22/21 10:05 09/22/21 10:05 Pain Score Most Recent Pain Score: Most Recent Pain Score Pain Level 0 09/22/21 10:05 Assessment Mental Status: Awake (Alert & Oriented to Patient Baseline) Airway and Respiratory Function: Patent airway with normal (patient baseline) respiratory exam Cardiovascular Function: Hemodynamically Stable Hydration Status: Adequately Hydrated Nausea & Vomiting: No Nausea or Vomiting Pain: Pain is tolerable per patient Peripheral Nerve Block: Patient did not receive a nerve block
[2021-09-22] MEDS: oxyCODONE 5 MG TAB PO (10:53)
--- NOTE | 2021-09-22 11:40 | IN_ITS ---
Date of service: 09/22/21 Time of Service: 11:40 PT Notes Visit Reasons: Right BALBINA Physical Therapy Day Surgery Initial Evaluation Date: 09/22/2021 Referring Doctor: MATTHIAS Herndon PT Orders: PT CONSULT: S/P Ortho Surgery Precautions: Standard. WBAT on R LE with AD. Patient Profile/Admitting Diagnosis: Juan is a 71-year-old male with right hip degenerative joint disease and is status post right anterior total hip arthroplasty on postoperative day 0. Matthias feliz is also status post right cannulated screw fixation of femoral neck fracture on 07/01/2021 at [facility], status post L3-L4 discectomy by Dr. Herring, and S/P L4-L5 facetectomies on 09/18/[address] Nicholson for lumbar spinal stenosis. PMHX: Medical History? Degenerative joint disease (DJD) of lumbar spine Subcapital fracture of right hip (~06/2020) Suicide attempt (04/06/04) Surgical History? Hx of reduction of closed fracture (07/01/20) Closed Reduction of right hip subcapital fracture with cannulated screw fixation with four 6.5 cannulated screws Painful orthopaedic hardware Removal of hip hardware 8 DOS: 2S/P inguinal hernia repair S/P laminectomy (09/19/19) L4-L5 medial facetectomies and laminectomies, right L3-4 discectomy with [facility] Social History/Home Situation: Lives with (who is also a nurse) at home with 4 steps to enter with bilateral rails. Independent with all ADLs without and AD/adaptive equipment. Equipment Owned/DME: FWW, STEVE, three-pronged cane Subjective: Complains of achiness, tightness, and discomfort in the R front thigh of thigh. Was relieved when he started walking but sitting back down on wheelchair caused the front of thigh to hurt again. Denies lightheadedness, chest pain, headache. Wanted to use restroom first prior to walking in the hallway. Objective: General Observation: Supine in bed. Mepilex Ag over surgical incision. TEDS in B legs. Cold pack on R hip. Mental Status: Alert and oriented x 4 Pain: 4/10 before session, 2/10 after ambulation activity in anterior hip and thigh ROM: Right Lower Extremity: Hip flexion lacks the last 25% of AROM due to pain and discomfort. Hip abduction WFL. Knee extension WFL however there is a minimal pain in the R quads with bending beyond 90 degrees with knee flexion from 0 to 90 degrees. Ankle dorsiflexion WFL. Ankle plantarflexion WFL. Left Lower Extremity: Hip flexion WFL. Hip abduction WFL. Knee flexion WFL. Ankle dorsiflexion WFL. Ankle plantarflexion WFL. Strength: Right Lower Extremity: Hip flexors 3-/5. Hip abductors 4-/5. Knee flexors 3-/5. Knee extensors 4-/5. Ankle dorsiflexors 4-/5. Ankle plantarflexors 4/5. Left Lower Extremity:Hip flexors 5/5. Hip abductors 5/5. Knee flexors 5/5. Knee extensors 5/5. Ankle dorsiflexors 5/5. Ankle plantarflexors 5/5. Sensation: Intact as to pain and light pressure in bilateral lower extremities Bed Mobility/Transfers: Supine to sit supervision Sit to stand standby assist Stand to sit standby assist Bed to chair standby assist Gait: Instructed patient with level surface ambulation of 150 feet using front wheeled walker with step through gait pattern requiring standby assist with mild antalgia noted due to discomfort on her right hip and anterior thigh. Pain however did not limit ambulation distance. Denies headache, chest pain, and lightheadedness throughout activity. Stairs: Up and down 6 x 4 inch steps and 4 x 6 inch steps while holding onto 1 rail with one hand and with hand-held support of PT on the other hand with step to gait pattern with no report of increased pain on surgical site. Balance: Static Sitting: Normal Dynamic Sitting: Normal Static Standing: Fair fair Dynamic Standing: Special Tests: Mobility Limitations Standardized Measure [facility]-PAC 6 clicks Basic Mobility Inpatient Short Form: Raw Score: 21 CMS Score: 29% deficit Informed Consent Education: Patient and Sonja instructed in purpose of PT consult. Education and training on initial set of exercises that can be done at home have been completed with patient and with reference to the [employer] aapp. Assessment: Juan demonstrates functional mobility decline requiring the use of front wheeled walker for all mobility ADL performance to maximize independence and reduce fall risk. Patient presents with clinical signs and symptoms consistent with current/admitting diagnoses that have resulted to mobility limitations, gait instability, generalized weakness, and impairment of motor control as demonstrated by the following impairment level findings: 1. Decreased strength to right hip major muscle groups 2. Impaired standing balance 3. Limitation of joint range of motion in right hip Impairments are contributing to the following functional limitations: 1. Inability to safely ambulate without assistive device 2. Increase completion time for mobility ADL performance 3. Increased fall risk Patient is assessed as a 29164 moderatecomplexity based on the following: History: 71-year-old male with impairment level findings, functional limitations, and past medical history as indicated above Examination: Demonstrable impairment in strength, balance, and mobility level with underlying impairments and functional limitations as documented above Presentation: Evolving Decision Makin moderate complexity Goals: N/A. PT evaluation and 1-2 treatment sessions only for functional mobility training using recommended AD and for HEP instruction. Plan of Care/Treatment Plan: N/A. PT evaluation and 1-2 treatment session only for functional mobility training using recommended AD and for HEP instruction. DISCHARGE RECOMMENDATIONS: [] Home with no services [] [] Home with services [specify] [X] Home with outpatient PT. Home when medically cleared by orthopedic surgeon. Will benefit from outpatient PT services to facilitate return to independent ADL performance and independent community ambulation without assistive device. [] SNF for continued rehabilitation [] [] Guardian Ad Litem Care [] [] SNF versus LTC based on ability to participate and progress [] TREATMENT CODE/TIME: 63826 x 20 minutes, 72374 x 24 minutes beginning at 11:40 AM. Thank you for the opportunity to participate in the care of this patient. Alba Han PT, DPT, CLT [facility] [place], [place]
--- NOTE | 2021-09-22 14:34 | W.PM.OP ---
Date of service: 09/22/21 Time of Service: 09:30 Operative Note Operative Note DATE OF PROCEDURE: 09/22/21 PRE-OP DIAGNOSIS: Right Femoral Neck Malunion POST-OP DIAGNOSIS: same PROCEDURE: Right Anterior Total Hip Arthroplasty with Intraoperative Navigation, Cerclage Fixation of Femoral Neck Fracture SURGEON: Jordan Baca STAMP MACHINE SERVICER: Kristi Willoughby ANESTHESIA TYPE: Spinal Refer to Anesthesia Record ESTIMATED BLOOD LOSS: 250 PATHOLOGY: none sent TOURNIQUET TIME: 0 COMPLICATIONS: None Patient was transported to: PACU Patient's condition: stable Implants: 1. Depuy [place] Acetabular Component, 54mm 2. Depuy Acetabular Liner, 13m67ar 3. Depuy Corail Standard Collared Femoral Stem, Size 11 4. Depuy Altrx Ceramic Femoral Head, Size 36+5mm Indications: I have seen Juan in clinic for symptoms of hip pain following femoral neck fracture status post cannulated screw fixation. The screws were removed and intra-articular injection was performed which completely relieved his pain for short period of time. Since the pain returned I recommended more definitive fixation the form of hip replacement. Juan has exhausted nonoperative methods and was having significant limitations in daily function and desired better function and less pain. I discussed the technical details of a hip replacement. I explained the risks of the procedure to include, but not limited to, bleeding, infection, pain, stiffness, fracture, damage to nerves and vessels, damage to muscles and tendons, loosening, instability, leg length inequality, need for repeat procedure, blood clot and cardiopulmonary demise. Despite these risks, Juan elected to proceed. Findings: There was very dense bone around the previous screw sites. There was some shortening posterior angulation of the femoral head with notable soft spots in the subchondral region of the superior portion of the femoral head. There also was a vertical type crack seen over the anterior medial portion of the femoral neck not passing the intertrochanteric ridge. It was identified just prior to starting the femoral process of broaching and appeared old and that the edges were rounded. However given this appearance I placed a cerclage cable prophylactically. Procedure Description: Juan was greeted in the preoperative holding area where the correct side was identified and marked. The consent was reviewed with the patient and signed. The history and physical was updated. All questions were answered. He was taken back to the operating room. A spinal anesthestic was then administered. The feet were wrapped with cast padding and Coban and then placed into the boot liners and then into the boots. Care was taken to protect the skin and make sure the heels were fully down and the boots were stable. The patient was then positioned onto the HANA table. Both legs were held in a neutral position. SCDs were applied. The patient was then slid down onto a peroneal post. Prophylactic antibiotics in the form of cefazolin were administered. 1g of Tranxemic Acid was given intravenously within 30 minutes of incision. The right leg was then prepped with Chloraprep and draped in a standard fashion. A second prep with Chloraprep was performed prior to placement of a shower-curtain type drape with Iodine impregnated skin protection. A timeout to confirm correct identity, side and site, procedure, allergies, anesthesia, and medical concerns was performed. An obliquely oriented incision was made starting lateral to the ASIS and running distal over the Tensor Fascia Felicia (TFL) muscle belly toward the fibular head, approximately 10cm. The skin and soft tissue was dissected sharply, through Hui?s fascia, and to the fascia of the TFL. With the fascia and superior border of the IT band identified, the fascia was incised with a new knife just above any perforators from the IT band. The TFL muscle belly was bluntly dissected away from the fascia and moved laterally. The fat between TFL and rectus was identified to ensure the dissection was not within the TFL. Blunt dissection created space between abductors and the capsule and retractor was placed over the lateral femoral neck. The fibers of the rectus femoris tendon were identified and these were freed from the anterior capsule. A second cobra retractor was placed around the medial femoral neck. The TFL was further retracted laterally to show the deep fascia. Careful dissection through this layer identified three main crossing vessels of the lateral femoral circumflex. These were cauterized in multiple locations and then cut without any noticeable bleeding. The TFL was further released bluntly from the deep fascia to expose anterior hip capsule and fat the Ruel orthopaedic retractor was then placed beneath the TFL and against sartorius and medial soft tissues to protect and retract the soft tissues. A T-capsulotomy was then performed starting at the superior lateral acetabulum and moving distally to the intertrochanteric ridge. These capsular flaps were tagged with a No. 1 Ethibond and elevated from within. The capsular flaps were released to the shoulder of the lateral neck and to the lesser trochanter to give excellent visualization of the proximal femur. There is notable adhesions of the capsule to the proximal femur and the capsule itself was quite thick. A neck osteotomy was performed using an oscillating saw based on preoperative templates. This cut started in the shoulder and of the lateral neck and exited medially. The saw was at all times directed medially to avoid injury to the greater trochanter. Gross traction was applied to the leg and the osteotomy opened. The femoral head was attempted to be removed with a corkscrew, but I was unable to remove the head in 1 piece. Therefore I used an osteotome to section the femoral head to remove it atraumatically. Traction was released after head removal. Portions of the rectus obscuring visualization were minimally elevated off the superior acetabulum. An anterior retractor was placed over the anterior wall between capsule and labrum and attached to the Gripper retraction system. The femur was rotated to 90 degrees and medial capsule was fully released until the lesser trochanter was palpable and visible; the femur was returned to 30 degrees. During this process it was noted to have significant deformity to the anteromedial aspect of the femur with multiple ridges and osteophytes, likely from previous fracture site. A posterior retractor was placed similarly between capsule and labrum. This provided excellent visualization. The contents of the cotyloid fossa were removed with electrocautery and the labrum was removed with a knife. Acetabular reaming began with a 50mm reamer. This first reaming was directed anterior to posterior and medial to get down to the true floor. This was inspected and reamed until the true floor was reached. The anterior retractor was then released and entry and exit was provided by traction on the capsular flaps. I then reamed sequentially up to a 54mm reamer where good fit was obtained. The larger reamers were oriented based on anatomical reference of the anterior and lateral field to ensure proper abduction and anteversion. Positioning and size was confirmed with the fluoroscopy. A 54mm Depuy [place] acetabular component was selected. The acetabulum was reamed around the periphery with the selected acetabular size to prevent a rim fit. The deep tissues were irrigated. The acetabular component was then impacted in a position of about 40-45 degrees of abduction and 15-20 degrees of anteversion, using the patient?s anatomy as the ultimate landmark. Fluoroscopy was used to confirm this. There was excellent publishing specialist of the acetabular component and the inserting handle was removed. The acetabular liner, Depuy [id number] polyethylene liner, was inserted and lined up with the tines of the acetabular component. There was no soft tissue interposition. The liner was then impacted into position and confirmed to be well-seated. A portion of the darcie-articular cocktail was then injected around the acetabulum into the capsule and periosteum. This cocktail consisted of 123mg of Ropivacaine, 0.25mg of Epinephrine, 0.04mg of Clonidine, and 15mg of Ketorolac, diluted to 50cc. The leg was rotated to 120 degrees. Any remaining medial capsule was released until the lesser trochanter was easily palpable. A retractor was placed medially. The lateral capsule was further released into the shoulder to allow access to the greater trochanter. A Douglass retractor was placed over the greater trochanter which allowed the trochanter to flip in front of the capsule for excellent exposure. The leg was brought down into maximal extension and 20 degrees of adduction while ensuring there was no impingement on the acetabulum. Any remnant capsule within the trochanter was released. Piriformis and obturator externis were identified and protected. There was excellent access to the proximal femur. The lateral neck remnant was removed with a rongeur. The canal was mostly cortical type bone from reactive changes around the screw path. I used a rongeur to prepare the proposed placement of the femoral stem working laterally and all the way to the medial calcar. A box osteotome was utilized on multiple attempts with further work with a rongeur until a blunt canal probe was able to be inserted into the femoral canal A box osteotome initiated the broach course. A small curved rasp and a curved curette were used to work laterally. Broaching then began with a size 8 Corail broach. This was inserted manually around the trochanter and into the canal before mallet blows. At this moment it was clear that there was a vertical type crack exiting from the irregularity of the anterior medial aspect of the femoral neck distally towards the intertrochanteric ridge. It appeared stable and was not displaceable however, it did go all the way down to the intertrochanteric ridge. Given this appearance of the history of fracture about this proximal femur, I treated with prophylactic cable fixation. A Synthes cable system was utilized to place a single cable around the proximal femur from underneath the vastus ridge and medially to above the lesser trochanter. This was passed in tension so that it seated nicely across the intertrochanteric ridge. It was tensioned to 50 kg of pressure in the and cut. I then proceeded with femoral broaching. The broach was seated to the neck cut level based on the neck cut and the preoperative template. Sequential broaching was continued with the manual broaching device until a tight fit was obtained with good rotational control of the femur. A trial standard neck was inserted along with a +5 trial head. The leg was brought out of extension and adduction and then reduced with traction and internal rotation. The leg was stable anteriorly in a position of 30 degrees of extension and 90 degrees of external rotation. Fluoroscopy was used to ensure there was no fracture and the stem was seated well. Leg lengths were checked with an AP pelvis and pelvic reference points. GroupMe navigation system was used to confirm appropriate positioning and leg length and offset. Once content with the desired offset and leg lengths, the leg was brought back into extension, external rotation and adduction. The periosteum and surrounding tissue was injected with remaining portion of the darcie-articular cocktail. The proximal femur was irrigated as well as the deep tissues. The Depuy Corail standard collared stem, size 11, was then manually inserted into the proximal femur making sure to control rotation. It was then malleted into position with light blows, giving breaks to allow bone expansion and decrease risk of fracture. The selected Depuy 11, size 36+5mm, was then placed onto the clean and dry trunnion and secured with impaction onto the tapered fit. The leg was brought back out of extension and adduction and reduced with traction and internal rotation. Stability was confirmed with no shuck at 90 degrees of external rotation and 30 degrees of extension. No impingement through range of motion arc. Final x-ray images were obtained with fluoroscopy to confirm adequate positioning and no intraoperative fracture. The deep tissues were thoroughly irrigated with Surgiphor, betadine solution. This was allowed to sit in the wound for 3 minutes before being thoroughly irrigated out with normal saline. The capsule was then reapproximated with the previously placed Ethibond sutures. The TFL fascia was finally closed with a No. 2 Stratafix, barbed suture. Deep tissues were then reapproximated with 0 Vicryl and a running 2-0 Vicryl. The skin was closed with a running 4-0 Monocryl in a subcuticular fashion. This was reinforced with skin glue. A Mepilex silver dressing was applied. At the end of the case, all counts were correct. Juan was transferred to the hospital bed without difficulty. There was a fracture of the proximal femur which did appear to be old but could have been caused by the initial broaching. Nevertheless, it appeared to be stable and was prophylactic treated with a cerclage cable. This would not have any change to his postoperative weightbearing status. Juan has a good prognosis. Physical therapy will start today and without restrictions, weight-bearing as tolerated. Aspirin 81mg BID will be used for DVT prophylaxis.
== END 2021-09-22 13:15 | disposition home or self-care (01) ==
PROVIDERS: PCP Nurse Practitioner Family; Visit Provider Student in an Organized Health Care Education/Training Program
PROC: (CPT 27130; principal; 2021-09-22 07:30)
DX: M16.31 Unilateral osteoarthritis resulting from hip dysplasia, right hip (principal); E03.9 Hypothyroidism, unspecified; M81.0 Age-related osteoporosis without current pathological fracture; F41.1 Generalized anxiety disorder; I73.00 Raynaud's syndrome without gangrene; M96.661 Fracture of femur following insertion of orthopedic implant, joint prosthesis, or bone plate, right leg; Z87.81 Personal history of (healed) traumatic fracture
CPT/HCPCS: 27130; C1776; 20985; 27236; 73501; J0690; J1100

== ENCOUNTER 2021-10-07 11:05 | Outpatient (CLI) | payer MEDICARE, BC, SELFPAY ==
--- NOTE | 2021-10-07 10:45 | DI.RAD_ITS ---
Exam(s) XR HIP RT COMPLETE AP PELVIS EXAM: XR HIP RT COMPLETE AP PELVIS CLINICAL HISTORY: 1ST POST OP R [facility]. TECHNIQUE: 2D digital imaging was performed. COMPARISON: CR XR PELVIS AP from 08/13/2021 XA XR HIP RT IN OR from 09/22/2021 FINDINGS: Two views Stable appearance the components of the recently placed right hip prosthesis placed and 09/22/2021. No fracture or loosening. The position and appearance of the cerclage wire is also stable. IMPRESSION: DATA REPOSITORY: RADIATION DOSE DELIVERED:
== END 2021-10-07 11:06 | disposition home or self-care (01) ==
LOC: DIORS 11:05
PROVIDERS: PCP Nurse Practitioner Family; Referring Provider Nurse Practitioner Family; Visit Provider Physician Assistant Surgical
DX: Z96.641 Presence of right artificial hip joint (principal); Z47.1 Aftercare following joint replacement surgery
CPT/HCPCS: 73502

== ENCOUNTER 2021-10-13 03:47 | Outpatient (CLI) | payer MEDICARE, BC, SELFPAY ==
[2021-10-13 09:24] LABS: Lithium 0.4 mmol/l (0.6-1.2)
== END 2021-10-13 03:48 | disposition home or self-care (01) ==
LOC: LBO 03:47
PROVIDERS: PCP Nurse Practitioner Family; Visit Provider Nurse Practitioner Psychiatric/Mental Health
DX: F31.81 Bipolar II disorder (principal); F43.12 Post-traumatic stress disorder, chronic; F15.11 Other stimulant abuse, in remission; F19.11 Other psychoactive substance abuse, in remission; Z51.81 Encounter for therapeutic drug level monitoring
CPT/HCPCS: 36415; 80178

== ENCOUNTER 2021-10-18 04:30 | Outpatient (CLI) | payer MEDICARE, BC, SELFPAY ==
[2021-10-18 13:19] LABS: ALT 18 U/L (16-63); AST 18 U/L (15-37); Albumin 3.9 g/dL (3.4-5.0); Alkaline Phosphatase 106 U/L (46-116); Anion Gap 9.9 mmol/L (3-11); BUN 15 mg/dL (7-18); Bilirubin, Total 0.6 mg/dL (0.2-1.0); CO2 25.1 mmol/L (21.0-32.0); CREATININE 1.2 mg/dL (0.70-1.30); Calcium 9.3 mg/dL (8.5-10.1); Chloride 105 mmol/L (98-107); Estimated GFR 59.68 (mL/min/1.73m2); Glucose 86 mg/dL (74-106); Potassium 4.2 mmol/L (3.5-5.1); Sodium 140 mmol/L (136-145); Total Protein 7.2 g/dL (6.4-8.2)
[2021-10-18 15:06] LABS: Lithium 0.4 mmol/l (0.6-1.2)
== END 2021-10-18 04:31 | disposition home or self-care (01) ==
LOC: LOS 04:31
PROVIDERS: PCP Nurse Practitioner Family; Visit Provider Nurse Practitioner Psychiatric/Mental Health
DX: F31.81 Bipolar II disorder (principal); F43.12 Post-traumatic stress disorder, chronic; F15.11 Other stimulant abuse, in remission; F19.11 Other psychoactive substance abuse, in remission; Z51.81 Encounter for therapeutic drug level monitoring
CPT/HCPCS: 36415; 80053; 80178

== ENCOUNTER 2021-10-26 00:50 | Outpatient (CLI) | payer MEDICARE, BC, SELFPAY ==
[2021-10-26 13:32] LABS: Lithium 0.6 mmol/l (0.6-1.2)
== END 2021-10-26 00:51 | disposition home or self-care (01) ==
LOC: LOS 00:50
PROVIDERS: PCP Nurse Practitioner Family; Visit Provider Nurse Practitioner Family
DX: F31.81 Bipolar II disorder (principal); F43.12 Post-traumatic stress disorder, chronic; F15.11 Other stimulant abuse, in remission; F19.11 Other psychoactive substance abuse, in remission; Z79.899 Other long term (current) drug therapy; Z51.81 Encounter for therapeutic drug level monitoring
CPT/HCPCS: 36415; 80178

== ENCOUNTER → 2021-11-01 09:30 | Outpatient (BNVA) | payer MEDICARE, BC, SELFPAY | PROVIDERS: PCP Nurse Practitioner Family; Referring Provider Nurse Practitioner Family; Visit Provider Student in an Organized Health Care Education/Training Program | DX: Z47.1 Aftercare following joint replacement surgery (principal); Z96.641 Presence of right artificial hip joint; M76.31 Iliotibial band syndrome, right leg; M62.838 Other muscle spasm ==

== ENCOUNTER → 2022-02-16 01:52 | Outpatient (CLI) | payer MEDICARE, BC, SELFPAY ==
--- NOTE | 2022-02-16 06:30 | DI.MRI_ITS ---
Exam(s) MR BRAIN WO EXAM: MR BRAIN WO CLINICAL HISTORY: memory loss, cognitive impairment,R41.89 TECHNIQUE: Multiplanar multisequence MRI of the brain was performed. COMPARISON: No exams were available for comparison FINDINGS: There is mild generalized cerebral atrophy.. There are scattered areas of abnormal signal in periventricular white matter on T2 weighted and FLAIR imaging sparing the corpus callosum, findings are consistent with microvascular ischemic changes.. The orbital and temporal bone structures appear intact as does the pituitary. Diffusion weighted imaging shows no evidence of infarction. Susceptibility weighted imaging shows no evidence of intracranial hemorrhage. There is normal flow void in the [place] vasculature. IMPRESSION: No evidence of acute intracranial process. DATA REPOSITORY:
== END ==
PROVIDERS: PCP Nurse Practitioner Family; Visit Provider Nurse Practitioner Family
DX: R41.89 Other symptoms and signs involving cognitive functions and awareness (principal)
CPT/HCPCS: 70551

== ENCOUNTER 2022-03-03 04:00 | Outpatient (CLI) | payer MEDICARE, BC, SELFPAY ==
[2022-03-03 08:25] LABS: Abs Immature Grans 0.02 10^3/uL (0.0-0.06); Absolute Basophil Count 0.08 10^3/uL (0.0-0.2); Absolute Eosinophil Count 0.21 10^3/uL (0.0-0.7); Absolute Lymphocyte Count 1.44 10^3/uL (1.2-3.4); Absolute Monocyte Count 0.55 10^3/uL (0.1-0.8); Absolute Neutrophil Count 2.32 10^3/uL (1.2-6.7); Basophils % 1.7; Eosinophils % 4.5; HCT 46.7 % (40.0-50.0); HGB 15.4 g/dL (13.5-17.5); Immature Grans % 0.4; Lymphocytes % 31.2; MCH 32.9 pg (27.0-33.0); MCV 100 fL (80-95); MPV 9.7 fL (8.0-11.0); Monocytes % 11.9; Neutrophils % 50.3; Platelet Count 251 10^3/uL (130-400); RBC 4.68 10^6/uL (4.36-5.78); RDW 13.1 % (11.8-14.1); RDW-SD 48.1 fL; WBC 4.62 10^3/uL (4.4-10.8)
[2022-03-03 09:15] LABS: FREE T4 0.92 ng/dL (0.76-1.46); TSH 1.19 uIU/mL (0.36-3.74)
[2022-03-03 09:35] LABS: Lithium 0.3 mmol/l (0.6-1.2)
[2022-03-03 09:55] LABS: Vitamin B12 504 pg/mL (193-986)
[2022-03-13 19:21] LABS: Testosterone, Free 47.7 ng/dL (3.28-12.2); Testosterone, Total 1170 ng/dL (240-950)
== END 2022-03-03 04:01 | disposition home or self-care (01) ==
LOC: LBO 04:00
PROVIDERS: PCP Nurse Practitioner Family; Visit Provider Nurse Practitioner Family
DX: E29.1 Testicular hypofunction (principal); F03.90 Unspecified dementia, unspecified severity, without behavioral disturbance, psychotic disturbance, mood disturbance, and anxiety; R41.89 Other symptoms and signs involving cognitive functions and awareness; F31.9 Bipolar disorder, unspecified
CPT/HCPCS: 36415; 84402; 84403; 80178; 82607; 84439; 84443; 85025

== ENCOUNTER → 2022-03-07 12:03 | Outpatient (BNVA) | payer MEDICARE, BC, SELFPAY | PROVIDERS: PCP Nurse Practitioner Family; Referring Provider Nurse Practitioner Family; Visit Provider Nurse Practitioner Adult Health | DX: G31.84 Mild cognitive impairment of uncertain or unknown etiology; F41.9 Anxiety disorder, unspecified; F31.81 Bipolar II disorder | CPT/HCPCS: 99204; 99214 ==

== ENCOUNTER 2022-04-07 09:21 | Outpatient (CLI) | payer MEDICARE, BC, SELFPAY ==
[2022-04-12 16:14] LABS: Testosterone, Total 406 ng/dL (240-950)
== END 2022-04-07 09:22 | disposition home or self-care (01) ==
LOC: LBO 09:22
PROVIDERS: PCP Nurse Practitioner Family; Visit Provider Nurse Practitioner Family
DX: E29.1 Testicular hypofunction (principal)
CPT/HCPCS: 36415; 84403

== ENCOUNTER 2022-08-26 01:20 | Outpatient (RCR) | payer MEDICARE, BC, SELFPAY ==
[2022-08-26] MEDS: ZOLEDRONIC ACID/MANNITOL/WATER 5 MG/100 ML BTL 300 MG IVPB (10:09)
[2022-08-26] MEDS: Normal Saline Flush 10 ML SYR IVP (10:09)
== END 2022-09-04 23:59 | disposition home or self-care (01) ==
LOC: INF 01:20
PROVIDERS: PCP Nurse Practitioner Family; Visit Provider Nurse Practitioner Family
DX: M81.0 Age-related osteoporosis without current pathological fracture (principal)
CPT/HCPCS: 96365; J3489

== ENCOUNTER 2022-09-08 11:38 | Outpatient (CLI) | payer MEDICARE, BC, SELFPAY ==
--- NOTE | 2022-09-08 11:08 | DI.RAD_ITS ---
Exam(s) XR HIP RT AP LAT ONLY EXAM: XR HIP RT AP LAT ONLY CLINICAL HISTORY: ANNUAL F/U R [facility]. TECHNIQUE: 2D digital imaging was performed. Two images were obtained. AP and lateral views were ob tained. COMPARISON: CR XR HIP RT AP LAT ONLY from 07/26/2021 CR XR HIP RT COMPLETE AP PELVIS from 10/07/2021 FINDINGS: BONES: There are stable post operative changes present. No fracture or dislocation. JOINTS: The orthopedic hardware is in good position. No evidence of hardware loosening. SOFT TISSUE: Normal. IMPRESSION: Stable postoperative changes. DATA REPOSITORY: RADIATION DOSE DELIVERED:
== END 2022-09-08 11:39 | disposition home or self-care (01) ==
LOC: DIORS 11:38
PROVIDERS: PCP Nurse Practitioner Family; Referring Provider Nurse Practitioner Family; Visit Provider Student in an Organized Health Care Education/Training Program
DX: Z47.1 Aftercare following joint replacement surgery (principal); Z96.641 Presence of right artificial hip joint; M70.61 Trochanteric bursitis, right hip
CPT/HCPCS: 99213; 73502